=== PATIENT | female | born 1995 | race Hispanic/Latino ===

== ENCOUNTER 2025-06-02 07:16 | Inpatient (IN) | payer BC ==
[~2025-06-02] VITALS: Ht 170.2 cm; Wt 62.6 kg
[2025-06-02] VITALS (18 sets, daily range): BP systolic 92–113; BP diastolic 51–76; PULSE 63–91; RESP 15–20; TEMP 97.8–98.7; O2SAT 98–99
[2025-06-02 08:02] LABS: IMMATURE GRANULOCYTE ABSOLUTE 0.20 K/uL (0-1); NUCLEATED RED BLOOD CELLS 0.0 % (0.0-0.19); PLATELET COUNT (AUTO) 385 K/uL (130-400); RED BLOOD CELL COUNT(AUTO) 3.87 MIL/uL (4.00-5.50); RED CELL DISTRIBUTION WIDTH 12.6 % (11.0-15.5); WHITE BLOOD COUNT (AUTO) 25.9 K/uL (4.8-10.8)
[2025-06-02 08:20] LABS: ASPARTATE AMINOTRANSFERASE 11.0 U/L (10-37); CREATININE 0.7 mg/dL (0.5-1.0); GLOMERULAR FILTR. RATE CALC 121.0 mL/min (>90); GLUCOSE,RANDOM 94.0 mg/dL (70-105); SODIUM SERUM 139.0 mmol/L (136-145); TOTAL PROTEIN, SERUM 7.6 g/dL (6.0-8.3); UREA NITROGEN, BLOOD 11.0 mg/dL (7-18)
--- NOTE | 2025-06-02 08:48 | ERN ---
General Chief Complaint: Abscess Stated Complaint: ABSCESS Time Seen by MD: 07:24 History of Present Illness Initial Comments 30-year-old female history of diabetes who presents to emergency room with complaints of right perineal abscess. Patient states that she was initially seen by her primary care doctor 4-5 days ago. At that time they prescribed Ciprodex. However because the pain was getting worse and there was some minimal drainage they switched her medications over to doxycycline and got lab work. In the interim she was also follow up by them and received two total injections of Rocephin. Since then the blood work came back elevated to the point where her PCP called the patient at 3:00 a.m. in the morning advised the patient to go to the emergency room for evaluation. Patient states that she has never had symptoms like this before. It is progressively worsening and enlarging to the point where she is unable to sit or feel comfortable. No fever. No nausea vomiting diarrhea. No pain with urination. Allergies: Coded Allergies: No Known Drug Allergies (Unverified Allergy, Unknown, 06/02/25) Past Medical History Past Medical History: Other Medical History Other: ovarian cyst Past Surgical History: Other Surgical History Other: ovarian cyst Review of Systems: was completed, & the rest were negative. Physical Exam General Appearance: (+) no apparent distress Orientation: (+) alert, (+) oriented x 3 Ear, Nose, Throat: (+) hearing grossly normal, (+) normal ENT inspection, (+) moist mucous membraine Neck: (+) normal inspection Heart: (+) regular, (+) no gallop Gastrointestinal: (+) soft, (+) non-tender Genital Comment Female nurse accompanied for this part of the exam. There is a four by six area on the left posterior inguinal region just lateral to the vagina that is exquisitely tender, tense, warm and red. It appears to be deep. Back: (+) normal inspection, (+) no CVA tenderness Extremities: (+) normal range of motion Neurologic/Psychiatric: (+) normal speech, (+) no motor defecits, (+) no sensory deficits Results Laboratory and Microbiology Lab and Micro Result Laboratory Tests Test 06/02/25 07:53 White Blood Count 25.9 K/uL (4.8-10.8) H Red Blood Count 3.87 MIL/uL (4.00-5.50) L Hemoglobin 11.2 g/dL (12.0-16.0) L Hematocrit 34.0 % (36-48) L Mean Corpuscular Volume 87.9 fL (79-99) Mean Corpuscular Hemoglobin 28.9 pg (27.0-33.0) Mean Corpuscular Hemoglobin Concent 32.9 g/dL (32.0-36.0) Red Cell Distribution Width 12.6 % (11.0-15.5) Platelet Count 385 K/uL (130-400) Mean Platelet Volume 9.5 fL (7.5-10.5) Immature Granulocyte % (Auto) 0.8 % (0-1) Neutrophils (%) (Auto) 79.3 % (40.0-77.0) H Lymphocytes (%) (Auto) 11.2 % (21.0-51.0) L Monocytes (%) (Auto) 7.9 % (3.0-13.0) Eosinophils (%) (Auto) 0.5 % (0.0-8.0) Basophils (%) (Auto) 0.3 % (0.0-5.0) Neutrophils # (Auto) 20.5 K/uL (1.8-7.7) H Lymphocytes # (Auto) 2.9 K/uL (1.0-4.8) Monocytes # (Auto) 2.1 K/uL (0.1-1.0) H Eosinophils # (Auto) 0.13 K/uL (0.00-0.70) Basophils # (Auto) 0.08 K/uL (0.00-0.20) Absolute Immature Granulocyte (auto 0.20 K/uL (0-1) Nucleated Red Blood Cells 0.0 % (0.0-0.19) Sodium Level 139 mmol/L (136-145) Potassium Level 3.9 mmol/L (3.5-5.1) Chloride Level 102 mmol/L (101-111) Carbon Dioxide Level 28 mmol/L (21-32) Blood Urea Nitrogen 11 mg/dL (7-18) Creatinine 0.7 mg/dL (0.5-1.0) Glomerular Filtration Rate Calc 121 mL/min (>90) Random Glucose 94 mg/dL (70-105) Total Calcium 9.1 mg/dL (8.5-10.1) Total Bilirubin 0.4 mg/dL (0.2-1.0) Direct Bilirubin 0.1 mg/dL (0.0-0.3) Aspartate Amino Transf (AST/SGOT) 11 U/L (10-37) Alanine Aminotransferase (ALT/SGPT) 21 U/L (12-78) Alkaline Phosphatase 73 U/L (50-136) Total Protein 7.6 g/dL (6.0-8.3) Albumin 3.2 g/dL (3.5-5.0) L Serum Test, Qualitative NEGATIVE (NEGATIVE) EKG/XRAY/US/CT/MRI CT Scan Comment There appears to be a suggestion of a nabothian cyst in the cervix. I would recommend a pelvic and transvaginal sonogram for further evaluation. MDM 30-year-old female here for evaluation of left inguinal abscess. It appears to be deep. We will get basic blood work at this time and CT scan to rule out any fistulization. She will likely be admitted for surgical drainage as this is very close to the vagina and local anesthesia we will not be sufficient to with evacuate the potential abscess. ED Course Orders Procedure Category Date Status Time Cbc With Differential LAB 06/02/25 Complete 07:35 Basic Metabolic Panel LAB 06/02/25 Complete 07:35 Hepatic Function Panel LAB 06/02/25 Complete 07:35 Testing, LAB 06/02/25 Complete Serum Hcg 07:35 Ct Abdomen/Pelvis CT 06/02/25 Resulted W/Contrast 08:17 Iohexol (Omnipaque) PHA 06/02/25 Complete 08:57 Acetaminophen 325 Tab PHA 06/02/25 Complete (Tylenol 325mg Tab 09:30 Vancomycin 1g/250ml PHA 06/02/25 Complete Kit (Vancomycin 1g/2 10:00 Us Pelvic Non-Ob Comp US 06/02/25 Resulted 10:16 Current Medications Medications (Trade) Dose Ordered Sig/Kenzie Route PRN Reason Start Time Stop Time Status Last Admin Dose Admin Acetaminophen (TYLenol 325MG TAB) 650 mg ONCE ONCE PO 06/02/25 09:30 06/02/25 09:31 DC Iohexol (Omnipaque) 75 ml STK-MED ONCE IV 06/02/25 08:57 06/02/25 08:57 DC Vancomycin HCl (Vancomycin 1g/ 250ml Kit) 1 gm ONCE ONCE IV 06/02/25 10:00 10/4/25 10:01 DC Vital Signs Date Time Temp Pulse Resp B/P (MAP) Pulse Ox O2 Delivery O2 Flow Rate FiO2 06/02/25 10:30 71 20 123/71 99 Room Air* 0 21 06/02/25 09:11 100.2 89 20 110/74 99 Room Air* 0 21 06/02/25 07:27 98.1 102 16 117/78 98 Room Air* 0 21 06/02/25 07:22 98.1 102 16 117/78 98 Room Air 0 Patient re-evaluated at this time. Ultrasound shows a perirectal abscess. This was confirmed by Radiology. I spoke to Dr. Linton of General surgery who will accept the patient. COMPARISON: CT examination from the same day. CLINICAL HISTORY: nabothian cyst in the cervix, lt perineum pain TECHNIQUE: Transabdominal pelvic ultrasound (complete) with image documentation. FINDINGS: ENDOMETRIUM: Normal thickness. UTERUS/CERVIX: The uterus appears within normal limits. Overall dimensions are 7.8 x 4.0 x 3.3 cm. No uterine fibroid or other mass evident. RIGHT OVARY: Normal Doppler flow. No abnormal mass. LEFT OVARY: Normal Doppler flow. No abnormal mass. FREE FLUID: No free fluid. There is a 4.4 x 3.0 x 4.0 cm abscess within the left perineum that is presumed to reflect a perirectal abscess seen on the correlative CT examination. Clinical correlation is advised. IMPRESSION: 1. 4.4 x 3.0 x 4.0 cm abscess in the left perineum, likely representing a perirectal abscess. Clinical correlation is advised. 2. Otherwise normal pelvic ultrasound. /Eastern EXAM: US Pelvis, Complete transabdominal DX & DISP Disposition: Inpatient Departure Impression: Primary Impression: Perineal abscess Condition: Stable Referrals: SELF,REFERRAL (PCP) ALAN TINSLEY MD Jun 02, 2025 08:48
[2025-06-02] MEDS ORDERED: IOHEXOL-350 75 ML VIAL IV ONE (08:57)
[2025-06-02] MEDS: VANCOMYCIN KIT 1 GM/250 ML IV.KIT IV ONE (10:00)
--- NOTE | 2025-06-02 10:06 | HMCIMG ---
CT ABDOMEN/PELVIS W/CONTRAST HISTORY: perivaginal abscess, large, r/o fistula. COMPARISON: None. TECHNIQUE: Sequential axial images through abdomen and pelvis were performed. Patient was given 75 mL of Omnipaque 350 IV. Coronal and sagittal reformats were obtained. FINDINGS: Lung bases: Left lung is a pleural-based density measuring 1.2 cm. The heart and pericardium appears to be normal. Liver: Normal size and enhancement throughout. Portal vein: Patent. Gallbladder: Unremarkable. Spleen: Normal. Kidneys: Normal size and shape. Adrenal glands: Normal Pancreas: Unremarkable. Stomach and small bowel: No inflammation or distention noted. Colon: Unremarkable. Appendix: Normal. Bladder: Partially distended and unremarkable. Reproductive system: The uterus appears to be prominent than deviating towards the left side. In the cervix there is suggestion of a nabothian cyst.. Abdominal aorta: Normal caliber. Skeletal: No acute abnormality. IMPRESSION: No acute process noted. Left lower lung pleural-based density posteriorly measuring approximately 1.2 cm. I would recommend a complete CT of the chest for further workup There appears to be a suggestion of a nabothian cyst in the cervix. I would recommend a pelvic and transvaginal sonogram for further evaluation.
--- NOTE | 2025-06-02 10:25 | NUR ---
PTS HOG GRADER IS DR HAILE HAYES OF [place]
--- NOTE | 2025-06-02 11:02 | HMCIMG ---
EXAM: US Pelvis, Complete transabdominal COMPARISON: None provided. CLINICAL HISTORY: nabothian cyst in the cervix, lt perineum pain TECHNIQUE: Transabdominal pelvic ultrasound (complete) with image documentation. FINDINGS: ENDOMETRIUM: Normal thickness. UTERUS/CERVIX: The uterus appears within normal limits. Overall dimensions are 7.8 x 4.0 x 3.3 cm. No uterine fibroid or other mass evident. RIGHT OVARY: Normal Doppler flow. No abnormal mass. LEFT OVARY: Normal Doppler flow. No abnormal mass. FREE FLUID: No free fluid. There is a 4.4 x 3.0 x 4.0 cm abscess within the left perineum that is presumed to reflect a perirectal abscess seen on the correlative CT examination. Clinical correlation is advised. IMPRESSION: 1. 4.4 x 3.0 x 4.0 cm abscess in the left perineum, likely representing a perirectal abscess. Clinical correlation is advised. 2. Otherwise normal pelvic ultrasound. /[place]
--- NOTE | 2025-06-02 11:55 | NUR ---
DR. GASTON WAS AT BEDSIDE, SPOKE TO PT AND NURSING STAFF. STATES PT WILL BE SENT TO OR FOR I&D OF PERIANAL ASBCESS. housing management representative WAS INFORMED
[2025-06-02] MEDS ORDERED: DEXTROSE 50%-WATER 50 ML DISP.SYRIN IV PRN ×2 (12:00→21:30)
[2025-06-02] MEDS ORDERED: MAGNESIUM 2GM PREMIX 50ML 50 ML IV PRN ×2 (12:00→21:30)
[2025-06-02] MEDS ORDERED: GLUCAGON 1MG KIT 1 MG ML IM PRN ×2 (12:00→21:30)
[2025-06-02] MEDS ORDERED: PoTASSium chl 10% ELIXIR 20MEQ 20 MEQ/15 ML UDCUP PO PRN ×2 (12:00→21:30)
[2025-06-02] MEDS ORDERED: PoTASSium chloRIDE 20MEQ ER 20 MEQ ERTAB PO PRN (12:00)
[2025-06-02] MEDS ORDERED: guaiFENesin-DM 200/20MG 10ML PO PRN ×2 (12:00→21:30)
[2025-06-02] MEDS ORDERED: HYDROcodone/APAP 5/325 1 TAB TABLET PO PRN (12:00)
[2025-06-02] MEDS: VANCOMYCIN 2GM/500 ML BAG 500 ML IV ONE (12:00)
[2025-06-02] MEDS ORDERED: LACTULOSE 20 GM/30 ML UDCUP PO PRN ×2 (12:00→21:30)
[2025-06-02] MEDS: 0.9%NACL 1000ML 1,000 ML IV SCH (12:00)
[2025-06-02] MEDS ORDERED: MAG/ALUM/SIMETH 30 ML UDCUP PO PRN ×2 (12:00→21:30)
[2025-06-02] MEDS ORDERED: FAMOTIDINE 20MG VIAL IV PRN (12:00)
[2025-06-02] MEDS ORDERED: NITROGLYCERIN 0.4 MG SL TAB SL PRN ×2 (12:00→21:30)
[2025-06-02] MEDS ORDERED: VANCOMYCIN PROTOCOL PER PHARMACY IV PRN (12:00)
--- NOTE | 2025-06-02 12:00 | NUR ---
OR STAFF AT BEDSIDE, ORDER WAS ENTERED INTO SYSTEM SO THAT PT MAY BE TAKEN TO OR. US STAFF AT BEDSIDE, [facility] STATES HE HAS FOUND THAT PT PRESENTS WITH BARTHOLIN CYST ABSCESS AND HAS CALLED THE RADIOLOGIST TEAM TO MAKE AN ADDENDUM.
--- NOTE | 2025-06-02 12:05 | NUR ---
HOUSE [employer] IS AWARE, OR TEAM IS AWARE, THEY WILL BE CONTACTING DR. GASTON TO SEE IF PT WILL BE GOING TO OR PLANNED OR IF THIS IS SOMETHING THAT HAS TO BE ATTENDED TO BE OB
[2025-06-02 12:44] LABS: APPEARANCE,URINE CLOUDY (CLEAR); GLUCOSE, URINE (UA) NEGATIVE (NEGATIVE); LEUKOCYTE ESTERASE ,URINE NEGATIVE Leu/uL (NEGATIVE); NITRATE,URINE NEGATIVE (NEGATIVE); OCCULT BLOOD,URINE LARGE (NEGATIVE)
--- NOTE | 2025-06-02 12:45 | NUR ---
PT WENT TO OR AT THIS TIME.
[2025-06-02 12:48] LABS: SQUAMOUS EPITHELIAL CELL,UR FEW /HPF (0-2)
[2025-06-02 12:52] LABS: AMPHET/METH SCREEN,URINE NEGATIVE (NEGATIVE); BARBITURATE SCREEN, URINE NEGATIVE (NEGATIVE); CANNABINOID SCREEN,URINE NEGATIVE (NEGATIVE); COCAINE SCREEN,URINE NEGATIVE (NEGATIVE)
--- NOTE | 2025-06-02 13:05 | NUR ---
CT CHEST EXAM PENDING UNTIL FURTHER NOTICE: PATIENT TAKEN TO OR
[2025-06-02] MEDS ORDERED: MIDAZOLAM HCL 1 MG/ML 2ML VIAL ONE (13:16)
[2025-06-02] MEDS ORDERED: LIDOCAINE PF 100MG/5ML (2%) SYRINGE 5ML ONE (13:16)
[2025-06-02] MEDS ORDERED: GLYCOPYRROLATE 0.2 MG/ML 5 ML VIAL ONE (14:08)
--- NOTE | 2025-06-02 14:12 | NUR ---
REPORT GIVEN TO SHILO AT THIS TIME
--- NOTE | 2025-06-02 14:12 | HP ---
[facility] HISTORY AND PHYSICAL Date of Service: Jun 02, 2025 Time of Service: 13:58 PCP: Dr Luis Larson Admitting: Dr Calvert, Allergies: No Allergy Information Available, No Known Drug Allergies HISTORY OF PRESENT ILLNESS: [ 30-year-old female history of diabetes who presents to emergency room with complaints of right perineal abscess. Patient states that she was initially seen by her primary care doctor 4-5 days ago. At that time they prescribed Ciprodex. However because the pain was getting worse and there was some minimal drainage they switched her medications over to doxycycline and got lab work. In the interim she was also follow up by them and received two total injections of Rocephin. Since then the blood work came back elevated to the point where her PCP called the patient at 3:00 a.m. in the morning advised the patient to go to the emergency room for evaluation. Patient states that she has never had symptoms like this before. It is progressively worsening and enlarging to the point where she is unable to sit or feel comfortable. Most recent vital signs 100.2 temperature pulse 71 respiration 20 blood pressure 123/71 patient is on room air satting 99%. WBC 25.9 hemoglobin 11.2 hematocrit 34 platelets 385 sodium 139 potassium 3.9 CO2 28 BUN 11 creatinine 0.7 GFR 121 bilirubin 0.1 AST 11 ALT 21 UA negative. Toxicology negative. CT abdomen/pelvis showed no acute process noted. Left lower lung pleural-based density posteriorly measuring approximately 1.[address] of the chest. There is also suggestion of nabothian cyst in the cervix ultrasound recommended. Pelvic ultrasound transvaginal showed 4.4 x3 x 4 cm abscess in left peroneal likely representing a perirectal abscess. Pelvic ultrasound normal. CT chest pending. Patient admitted under hospitalist care for further evaluation/recommendations. A.m. labs REVIEW OF SYSTEMS CONSTITUTIONAL: Denies fevers, chills, or night sweats. No unintentional weight loss reported. NEUROLOGICAL: Denies headache, amaurosis fugax, motor weakness, sensory deficit, vertigo/spinning sensation, gait abnormalities, or tremors. ENT: No hearing loss, otalgia, otorrhea, rhinitis, rhinorrhea, hoarseness, or sore throat. CARDIOVASCULAR: Denies any exertional angina, dyspnea on exertion, orthopnea, paroxysmal nocturnal dyspnea, palpitations, life-threatening arrhythmias, claudication. PULMONARY: Denies any shortness of breath, cough, phlegm/sputum, hemoptysis, pleuritic chest pain. SLEEP: Denies morning headaches, daytime somnolence or napping. Denies difficulty falling asleep, staying asleep, waking from sleep. Denies knowledge of snoring. GASTROINTESTINAL: Denies any type of dysphagia to either liquids or solids. Denies nausea, vomiting, pyrosis, early satiety, abdominal pain, diarrhea, constipation, or changes in stool consistency or caliber. Denies coffee-ground emesis, hematemesis, hematochezia, or melanotic stools. GENITOURINARY: Denies frequency, urgency, nocturia, hematuria or incontinence (Storage/Irritative symptoms.) Low urinary stream, straining to void, urinary intermittency or hesitancy, splitting of the voiding stream, terminal dribbling. Perirectal abscess pain ENDOCRINOLOGIC: Denies polyuria, polydipsia, polyphagia or heat/cold intolerances. HEMATOLOGIC: Denies thrombophilia/previous clots, or coagulopathy/bleeding disorders. ONCOLOGIC: Denies personal history of malignancy. DERMATOLOGIC: Denies rashes or pruritus. PSYCHIATRIC: Denies any suicidal or homicidal ideation. Denies hallucinations. PAST MEDICAL HISTORY: [ none] PAST SURGICAL HISTORY: [ Laparoscopic ovarian cyst removal 2022 ] PAST SOCIAL HISTORY: [ denies any] FAMILY HISTORY: [ lives with family, independent] Coded Allergies: No Known Drug Allergies (Unverified Allergy, Unknown, 06/02/25) PHYSICAL EXAM GENERAL APPEARANCE: The patient is awake, alert, and oriented, in no acute cardiopulmonary distress. NEUROLOGICAL: Cranial nerves II-XII grossly intact. Motor is 5/5 in bilateral upper and lower extremities proximal to distal. No sensory deficits. HEENT: Face is symmetric. Pupils are equal and reactive. Extraocular movements are intact. NECK: Supple. No JVD. No thyromegaly. No submental, submandibular, pre- /postauricular, occipital or supraclavicular lymphadenopathy. CHEST: Normal chest expansion. No Telemetry. LUNGS: Absence of any rales, rhonchi or any wheezing. CARDIOVASCULAR: Regular. S1 and S2 normal. No appreciable rubs, murmurs or gallops. ABDOMEN: Soft, nontender, and nondistended. There is no rebound, voluntary guarding, or rigidity. : Deferred. No Negron. EXTREMITIES: Non-edematous and not cyanotic. No clubbing. Good capillary refill. SKIN: No skin breakdown. Vital Sign (Last 24 Hours) 06/02/25 06/02/25 09:11 10:30 Temp 100.2 Pulse 71 Resp 20 B/P (MAP) 123/71 Pulse Ox 99 O2 Delivery Room Air* O2 Flow Rate 0 FiO2 21 LABS: Laboratory: Test 06/02/25 08:15 06/02/25 07:53 Range/Units Urine Color YELLOW YELLOW Urine Appearance CLOUDY H CLEAR Urine pH 5.5 5.0-8.0 Urine Specific [place] 1.031 1.001-1.031 Urine Protein 20 H NEGATIVE mg/dL Urine Glucose (UA) NEGATIVE NEGATIVE mg/dL Urine Ketones NEGATIVE NEGATIVE mg/dL Urine Occult Blood LARGE H NEGATIVE Urine Nitrate NEGATIVE NEGATIVE Urine Bilirubin NEGATIVE NEGATIVE mg/dL Urine Urobilinogen 0.2 0.2-1.0 mg/dL Urine Leukocyte Esterase NEGATIVE NEGATIVE Mila/uL Urine RBC TNTC H 0-1 /HPF Urine WBC 26-50 H 0-1 /HPF Urine Squamous Epithelial Cells FEW 0-2 /HPF Urine Bacteria RARE None Seen /HPF Urine Opiates Screen NEGATIVE NEGATIVE Urine Barbiturates Screen NEGATIVE NEGATIVE Urine Phencyclidine Screen NEGATIVE NEGATIVE Urine Amphetamines Screen NEGATIVE NEGATIVE Urine Benzodiazepines Screen NEGATIVE NEGATIVE Urine Cocaine Screen NEGATIVE NEGATIVE Urine Marijuana (THC) Screen NEGATIVE NEGATIVE White Blood Count 25.9 H 4.8-10.8 K/uL Red Blood Count 3.87 L 4.00-5.50 MIL/uL Hemoglobin 11.2 L 12.0-16.0 g/dL Hematocrit 34.0 L 36-48 % Mean Corpuscular Volume 87.9 79-99 fL Mean Corpuscular Hemoglobin 28.9 27.0-33.0 pg Mean Corpuscular Hemoglobin Concent 32.9 32.0-36.0 g/dL Red Cell Distribution Width 12.6 11.0-15.5 % Platelet Count 385 130-400 K/uL Mean Platelet Volume 9.5 7.5-10.5 fL Immature Granulocyte % (Auto) 0.8 0-1 % Neutrophils (%) (Auto) 79.3 H 40.0-77.0 % Lymphocytes (%) (Auto) 11.2 L 21.0-51.0 % Monocytes (%) (Auto) 7.9 3.0-13.0 % Eosinophils (%) (Auto) 0.5 0.0-8.0 % Basophils (%) (Auto) 0.3 0.0-5.0 % Neutrophils # (Auto) 20.5 H 1.8-7.7 K/uL Lymphocytes # (Auto) 2.9 1.0-4.8 K/uL Monocytes # (Auto) 2.1 H 0.1-1.0 K/uL Eosinophils # (Auto) 0.13 0.00-0.70 K/uL Basophils # (Auto) 0.08 0.00-0.20 K/uL Absolute Immature Granulocyte (auto 0.20 0-1 K/uL Nucleated Red Blood Cells 0.0 0.0-0.19 % Sodium Level 139 136-145 mmol/L Potassium Level 3.9 3.5-5.1 mmol/L Chloride Level 102 101-111 mmol/L Carbon Dioxide Level 28 21-32 mmol/L Blood Urea Nitrogen 11 7-18 mg/dL Creatinine 0.7 0.5-1.0 mg/dL Glomerular Filtration Rate Calc 121 >90 mL/min Random Glucose 94 70-105 mg/dL Total Calcium 9.1 8.5-10.1 mg/dL Total Bilirubin 0.4 0.2-1.0 mg/dL Direct Bilirubin 0.1 0.0-0.3 mg/dL Aspartate Amino Transf (AST/SGOT) 11 10-37 U/L Alanine Aminotransferase (ALT/SGPT) 21 12-78 U/L Alkaline Phosphatase 73 50-136 U/L Total Protein 7.6 6.0-8.3 g/dL Albumin 3.2 L 3.5-5.0 g/dL Serum Test, Qualitative NEGATIVE NEGATIVE Current Medications Medications (Trade) Dose Ordered Sig/Kenzie Route PRN Reason Start Time Stop Time Status Last Admin Dose Admin Acetaminophen (TYLenol 325MG TAB) 650 mg Q4H PRN PO MILD PAIN (1-3) 06/02/25 12:00 07/02/25 11:59 Acetaminophen (TYLenol 325MG TAB) 650 mg Q6H PRN PO MILD PAIN (1-3) 06/02/25 12:00 06/02/25 11:44 DC Acetaminophen (TYLenol 325MG TAB) 650 mg Q6H PRN PO TEMPERATURE GREATER THAN 101.5 06/02/25 12:00 07/02/25 11:59 Acetaminophen/ Hydrocodone Bitart (NORco 5/325MG) 1 tab Q6H PRN PO SEVERE PAIN (7-10) 06/02/25 12:00 06/07/25 11:59 Al Hydroxide/Mg Hydroxide (MAALox PLUS 30ML) 30 ml Q6H PRN PO INDIGESTION 06/02/25 12:00 07/02/25 11:59 Dextrose (D50w) 50 ml AD PRN IV HYPOGLYCEMIA PROTOCOL 06/02/25 12:00 07/02/25 11:59 Diphenhydramine HCl (BENAdryl INJ) 25 mg Q6H PRN IV SEVERE ITCHING/RASH 06/02/25 12:00 07/02/25 11:59 Famotidine (Pepcid 20mg Vial) 20 mg BID IV 06/02/25 21:00 07/02/25 20:59 Famotidine (Pepcid 20mg Vial) 20 mg BID PRN IV NAUSEA/VOMITING 06/02/25 12:00 06/02/25 11:44 DC Glucagon (Glucagon 1mg Kit) 1 mg AD PRN IM HYPOGLYCEMIA PROTOCOL 06/02/25 12:00 07/02/25 11:59 Guaifenesin/ Dextromethorphan (RobiTUSSin DM 200/20MG 10ML) 10 ml Q4H PRN PO COUGH 06/02/25 12:00 07/02/25 11:59 Hydralazine HCl (APRESOLine 20MG INJ) 10 mg Q6H PRN IV For:SBP above 160;DBP above 90 06/02/25 12:00 07/02/25 11:59 Insulin Human Regular (humuLIN R 100 UNIT/ML 3ML) INSULIN SLIDING SCAL... ACHS SQ 06/02/25 16:30 07/02/25 16:29 Ketorolac Tromethamine (toRADol) 15 mg Q8H PRN IV MODERATE PAIN (4-6) 06/02/25 12:00 06/07/25 11:59 Lactulose (Constulose 20gm/ 30ml Udcup) 20 gm BID PRN PO CONSTIPATION 06/02/25 12:00 07/02/25 11:59 Magnesium Sulfate 50 ml @ 0 mls/hr PROTOCOL PRN IV other 06/02/25 12:00 07/02/25 11:59 Morphine Sulfate (morPHINE 2MG SYG) 1 mg Q4H PRN IVP SEVERE PAIN (7-10) 06/02/25 12:00 06/02/25 11:44 DC Nitroglycerin (Nitrostat) 0.4 mg PROTOCOL PRN SL CHEST PAIN 06/02/25 12:00 07/02/25 11:59 Ondansetron HCl (zoFRAN 4MG INJ) 4 mg Q6H PRN IV NAUSEA/VOMITING 06/02/25 12:00 07/02/25 11:59 Potassium Chloride 100 ml @ 100 mls/hr AD PRN IV POTASSIUM PROTOCOL 06/02/25 12:00 07/02/25 11:59 Potassium Chloride (K-Dur/Klor-Con 20meq) 20 meq AD PRN PO POTASSIUM PROTOCOL 06/02/25 12:00 07/02/25 11:59 Potassium Chloride (KCl 10% Elixir 20meq/15ml) 20 meq AD PRN PO POTASSIUM PROTOCOL 06/02/25 12:00 07/02/25 11:59 Sodium Chloride 1,000 ml @ 100 mls/hr Q10H IV 06/02/25 12:00 07/02/25 11:59 Vancomycin HCl 250 ml @ 125 mls/hr Q8H IV 06/02/25 22:00 06/12/25 21:59 Vancomycin HCl (Vancomycin Protocol) 1 each PROTOCOL PRN IV VANCOMYCIN PROTOCOL 06/02/25 12:00 06/16/25 11:59 Zolpidem Tartrate (AmbIEN) 5 mg HS PRN PO INSOMNIA 06/02/25 12:00 07/02/25 11:59 DIAGNOSTICS / RADIOLOGY: [ ] ASSESSMENT: [ sepsis POA Rectal abscess POA nabothian cyst in cervix per CT abdomen/pelvis POA Leukocytosis POA Multifactorial anemia POA] PLAN: [ Patient admitted to medical-surgical floor under hospitalist care Surgeon consulted for perirectal abscess Wound culture pending Vancomycin protocol Normal saline at 100 mL/hour CT abdomen/pelvis showed pleural density nabothian cyst in cervix Pelvic ultrasound showed abscess left peroneal CT chest pending Ultrasound transvaginal pending A.m. labs Potassium magnesium protocol Hypo hyper glycemia protocol ] ADVANCED CARE PLANNING 1. Which of the following were discussed? Hospice Care - Yes / No Therapeutic options - Yes / No Advance Directives - Yes / No Other discussions - 2. Discussed with who? Patient 3. Voluntary nature of this service was explained to the patient? Yes / No 4. Amount of time spent - ___more than 35 min____ 5. Reviewed by Physician? (if this service was performed by NPP) Yes / No ATTESTATION BY PHYSICIAN I have seen and examined the patient. I reviewed the documentation, medical decision making, and treatment plan as noted by the mid-level provider above. I agree with the findings and plan of care. CECILIA CALVERT MD, [facility] [employer] Jun 02, 2025 14:12
--- NOTE | 2025-06-02 15:06 | CONS ---
GENERAL SURGERY CONSULTATION NOTE Date/Time Patient Seen: 06/02/2025 11:30 a.m. Requesting Physician: ED physician Reason for Consultation: Perianal abscess History of Present Illness: This is a 30-year-old female that presents with perianal pain for the last 10 days. She reports that she initially had lower pain that she was being treated for UTI. She had been given several and it kind of antibiotics. Nothing was helping. She noticed a ball that developed in under the skin between the vagina and anal canal. A couple of days ago she noticed a large amount of purulent drainage from her rectum. That stopped and the swelling continued. So the patient came to the ED. patient is afebrile and hemodynamically stable. She has a leukocytosis. CT scan of the abdomen and pelvis showed a large fluid collection near the rectum which was called a possible nabothian cyst. She also had a transvaginal ultrasound performed which was called as a possible Bartholin gland cyst or abscess. Surgery was consulted for possible perianal abscess. Past Medical History: None Past Surgical History: None Family History: None Social History: Nonsmoker nondrinker Current Medications Medications (Trade) Dose Ordered Sig/Kenzie Route Start Time Stop Time Status Last Admin Dose Admin Famotidine (Pepcid 20mg Vial) 20 mg BID IV 06/02/25 21:00 07/02/25 20:59 Insulin Human Regular (humuLIN R 100 UNIT/ML 3ML) INSULIN SLIDING SCAL... ACHS SQ 06/02/25 16:30 07/02/25 16:29 Sodium Chloride 1,000 ml @ 100 mls/hr Q10H IV 06/02/25 12:00 07/02/25 11:59 Vancomycin HCl 250 ml @ 125 mls/hr Q8H IV 06/02/25 22:00 06/12/25 21:59 Review of Systems: CONST: No fever, fatigue, or weight changes. EYES: No recent vision problems. ENT: No congestion, ear pain, or sore throat. C/V: No chest pain, palpitations, or edema. RESP: No cough, congestion, wheezing or shortness of breath. GI: No abdominal pain, nausea, vomiting, constipation, or diarrhea. : No incontinence or dysuria. SKIN: No rash. NEURO: No headache, focal numbness or weakness, dizziness, or seizures. PSYCH: No depression or anxiety. HEME: No abnormal bruising or bleeding. LYMPH: No swollen glands. Physical Examination: GENERAL: No acute distress. HEAD: Normal with no signs of head trauma. LUNGS: Respirations nonlabored HEART: Regular rate and rhythm ABD: Soft, nondistended, nontender, no rebound, no guarding : Large area of induration in the left perineum there is also erythema and fluctuance LYMPH: No lymphadenopathy noted. EXT: No clubbing, cyanosis or edema. SKIN: No rashes or lesions noted. NEURO: Awake, alert, and oriented x3. No focal sensory or strength deficits noted. Vital Signs (last 8hr) Date Time Temp Pulse Resp B/P (MAP) Pulse Ox O2 Delivery O2 Flow Rate FiO2 06/02/25 14:56 80 18 102/61 99 Nasal Cannula 2.0 06/02/25 14:51 85 17 98/58 99 Nasal Cannula 2.0 24 06/02/25 14:46 87 16 103/62 99 Nasal Cannula 2.0 06/02/25 14:41 83 17 108/60 100 Nasal Cannula 2.0 24 06/02/25 14:36 88 19 105/55 100 Nonrebreathing Mask 10.0 100 06/02/25 14:31 84 16 100/58 100 Nonrebreathing Mask 10.0 100 06/02/25 14:26 90 17 96/55 100 Nonrebreathing Mask 10.0 100 06/02/25 14:21 91 15 92/51 100 Nonrebreathing Mask 10.0 100 06/02/25 14:16 98.2 89 15 95/52 100 Nonrebreathing Mask 10.0 100 06/02/25 10:30 71 20 123/71 99 Room Air* 0 06/02/25 09:11 100.2 89 20 110/74 99 Room Air* 0 06/02/25 07:27 98.1 102 16 117/78 98 Room Air* 0 06/02/25 07:22 98.1 102 16 117/78 98 Room Air 0 Laboratory: Hematology Labs: Test 06/02/25 07:53 Range/Units White Blood Count 25.9 H 4.8-10.8 K/uL Red Blood Count 3.87 L 4.00-5.50 MIL/uL Hemoglobin 11.2 L 12.0-16.0 g/dL Hematocrit 34.0 L 36-48 % Mean Corpuscular Volume 87.9 79-99 fL Mean Corpuscular Hemoglobin 28.9 27.0-33.0 pg Mean Corpuscular Hemoglobin Concent 32.9 32.0-36.0 g/dL Red Cell Distribution Width 12.6 11.0-15.5 % Platelet Count 385 130-400 K/uL Mean Platelet Volume 9.5 7.5-10.5 fL Immature Granulocyte % (Auto) 0.8 0-1 % Neutrophils (%) (Auto) 79.3 H 40.0-77.0 % Lymphocytes (%) (Auto) 11.2 L 21.0-51.0 % Monocytes (%) (Auto) 7.9 3.0-13.0 % Eosinophils (%) (Auto) 0.5 0.0-8.0 % Basophils (%) (Auto) 0.3 0.0-5.0 % Neutrophils # (Auto) 20.5 H 1.8-7.7 K/uL Lymphocytes # (Auto) 2.9 1.0-4.8 K/uL Monocytes # (Auto) 2.1 H 0.1-1.0 K/uL Eosinophils # (Auto) 0.13 0.00-0.70 K/uL Basophils # (Auto) 0.08 0.00-0.20 K/uL Absolute Immature Granulocyte (auto 0.20 0-1 K/uL Nucleated Red Blood Cells 0.0 0.0-0.19 % Chemistry Labs: Test 06/02/25 07:53 Range/Units Sodium Level 139 136-145 mmol/L Potassium Level 3.9 3.5-5.1 mmol/L Chloride Level 102 101-111 mmol/L Carbon Dioxide Level 28 21-32 mmol/L Blood Urea Nitrogen 11 7-18 mg/dL Creatinine 0.7 0.5-1.0 mg/dL Glomerular Filtration Rate Calc 121 >90 mL/min Random Glucose 94 70-105 mg/dL Total Calcium 9.1 8.5-10.1 mg/dL Total Bilirubin 0.4 0.2-1.0 mg/dL Direct Bilirubin 0.1 0.0-0.3 mg/dL Aspartate Amino Transf (AST/SGOT) 11 10-37 U/L Alanine Aminotransferase (ALT/SGPT) 21 12-78 U/L Alkaline Phosphatase 73 50-136 U/L Total Protein 7.6 6.0-8.3 g/dL Albumin 3.2 L 3.5-5.0 g/dL Serum Test, Qualitative NEGATIVE NEGATIVE Diagnostics / Radiology: PATIENT: MICHEAL BENOIT MR#: [id number] : 1995 SEX: F AGE: 30 LOCATION: [facility] ORDER 7 STATUS: [facility] REPORT#: [id number] SERVICE 6 REASON: perivaginal abscess, large, r/o fistula ORDERING PHYSICIAN: ALAN TINSLEY MD PROCEDURE: ABD PEL W - CT ABDOMEN/PELVIS W/CONTRAST CT ABDOMEN/PELVIS W/CONTRAST HISTORY: perivaginal abscess, large, r/o fistula. COMPARISON: None. TECHNIQUE: Sequential axial images through abdomen and pelvis were performed. Patient was given 75 mL of Omnipaque 350 IV. Coronal and sagittal reformats were obtained. FINDINGS: Lung bases: Left lung is a pleural-based density measuring 1.2 cm. The heart and pericardium appears to be normal. Liver: Normal size and enhancement throughout. Portal vein: Patent. Gallbladder: Unremarkable. Spleen: Normal. Kidneys: Normal size and shape. Adrenal glands: Normal Pancreas: Unremarkable. Stomach and small bowel: No inflammation or distention noted. Colon: Unremarkable. Appendix: Normal. Bladder: Partially distended and unremarkable. Reproductive system: The uterus appears to be prominent than deviating towards the left side. In the cervix there is suggestion of a nabothian cyst.. Abdominal aorta: Normal caliber. Skeletal: No acute abnormality. IMPRESSION: No acute process noted. Left lower lung pleural-based density posteriorly measuring approximately 1.2 cm. I would recommend a complete CT of the chest for further workup There appears to be a suggestion of a nabothian cyst in the cervix. I would recommend a pelvic and transvaginal sonogram for further evaluation. DICTATED BY: ORACIO ENNIS MD DATE: 06/02/25 1001 ELECTRONICALLY SIGNED BY: ORACIO ENNIS MD DATE: 06/02/25 1006 PATIENT: MICHEAL BENOIT MR#: [id number] : 1995 SEX: F AGE: 30 LOCATION: [facility] ORDER 1017 STATUS: REG ER REPORT#: [id number] SERVICE 1016 REASON: nabothian cyst in the cervix, lt perineum pain ORDERING PHYSICIAN: ALAN TINSLEY MD PROCEDURE: PELVCOMP - US PELVIC NON-OB COMP ADDENDUM REPORT ADDENDUM: EXAM: US Pelvis, Complete transabdominal COMPARISON: CT examination from the same day. CLINICAL HISTORY: nabothian cyst in the cervix, lt perineum pain TECHNIQUE: Transabdominal pelvic ultrasound (complete) with image documentation. FINDINGS: ENDOMETRIUM: Normal thickness. UTERUS/CERVIX: The uterus appears within normal limits. Overall dimensions are 7.8 x 4.0 x 3.3 cm. No uterine fibroid or other mass evident. RIGHT OVARY: Normal Doppler flow. No abnormal mass. LEFT OVARY: Normal Doppler flow. No abnormal mass. FREE FLUID: No free fluid. There is a 4.4 x 3.0 x 4.0 cm abscess within the left perineum that is presumed to reflect a perirectal abscess seen on the correlative CT examination. Clinical correlation is advised. IMPRESSION: 1. 4.4 x 3.0 x 4.0 cm abscess in the left perineum, likely representing a perirectal abscess. Clinical correlation is advised. 2. Otherwise normal pelvic ultrasound. /[place] EXAM: US Pelvis, Complete transabdominal COMPARISON: None provided. CLINICAL HISTORY: nabothian cyst in the cervix, lt perineum pain TECHNIQUE: Transabdominal pelvic ultrasound (complete) with image documentation. FINDINGS: ENDOMETRIUM: Normal thickness. UTERUS/CERVIX: The uterus appears within normal limits. Overall dimensions are 7.8 x 4.0 x 3.3 cm. No uterine fibroid or other mass evident. RIGHT OVARY: Normal Doppler flow. No abnormal mass. LEFT OVARY: Normal Doppler flow. No abnormal mass. FREE FLUID: No free fluid. There is a 4.4 x 3.0 x 4.0 cm abscess within the left perineum that is presumed to reflect a perirectal abscess seen on the correlative CT examination. Clinical correlation is advised. IMPRESSION: 1. 4.4 x 3.0 x 4.0 cm abscess in the left perineum, likely representing a perirectal abscess. Clinical correlation is advised. 2. Otherwise normal pelvic ultrasound. /[place] DICTATED BY: GLEN VELAZQUEZ Jr., MD DATE: 06/02/25 120 ELECTRONICALLY SIGNED BY: DATE: EXAM: US Pelvis, Complete transabdominal COMPARISON: None provided. CLINICAL HISTORY: nabothian cyst in the cervix, lt perineum pain TECHNIQUE: Transabdominal pelvic ultrasound (complete) with image documentation. FINDINGS: ENDOMETRIUM: Normal thickness. UTERUS/CERVIX: The uterus appears within normal limits. Overall dimensions are 7.8 x 4.0 x 3.3 cm. No uterine fibroid or other mass evident. RIGHT OVARY: Normal Doppler flow. No abnormal mass. LEFT OVARY: Normal Doppler flow. No abnormal mass. FREE FLUID: No free fluid. There is a 4.4 x 3.0 x 4.0 cm abscess within the left perineum that is presumed to reflect a perirectal abscess seen on the correlative CT examination. Clinical correlation is advised. IMPRESSION: 1. 4.4 x 3.0 x 4.0 cm abscess in the left perineum, likely representing a perirectal abscess. Clinical correlation is advised. 2. Otherwise normal pelvic ultrasound. /[place] DICTATED BY: GLEN VELAZQUEZ Jr., MD DATE: 06/02/251200 ELECTRONICALLY SIGNED BY: GLEN VELAZQUEZ Jr., MD DATE: 06/02/25 120 Assessment: This is a 30-year-old female with perineal pain likely due to a perianal absc ess. I recommend incision and drainage. The patient has been started on IV antibiotics. I recommend to change those two Zosyn IV. I discussed the procedure in detail with the patient and her mother who was at bedside. All questions were answered. Both expressed understanding and agreement with the plan. LAURA GASTON DO Jun 02, 2025 15:06
--- NOTE | 2025-06-02 15:08 | OP ---
Operative Note: DATE OF PROCEDURE: 06/02/25 SURGEON: LAURA GASTON DO WIRE WELDER: None ANESTHESIA: General ANESTHESIOLOGIST/SENIOR OFFICER: RENNY Mcguire PREOPERATIVE DIAGNOSIS: Left perianal abscess POSTOPERATIVE DIAGNOSIS: Left perianal abscess SYNOPSIS: None PROCEDURE: Incision and drainage of left perianal abscess ESTIMATED BLOOD LOSS: 30 cc INDICATIONS: This is a 30-year-old female with perineal pain. She has a leukocytosis. CT scan and ultrasound showed a large fluid collection called to be nabothian cyst or Bartholin gland cyst. On physical exam the patient has erythema induration and fluctuance in the perineum consistent with perianal abscess. I recommended incision and drainage. I discussed the procedure in detail with the patient and her mother is at bedside. All questions were answered. Both expressed understanding and agreement with plan. DESCRIPTION OF PROCEDURE: The patient was placed on the operating table in the supine position. After adequate sedation the patient was intubated by anesthesia. Perioperative antibiotics were given. The patient was then placed in lithotomy position and the perineum was prepped and draped in the usual sterile fashion. A time-out was performed. A skin incision was made over the area of greatest fluctuance. Copious amounts of purulent drainage were appreciated immediately. Cultures were obtained. The incision was extended as after bluntly exploring the abscess cavity. The wound was copiously irrigated with sterile saline. The wound was packed with 1 in iodoform gauze and dressed with gauze and mesh undergarment. The patient tolerated the procedure well. All instrument, needle, and sponge counts were correct at the end of the procedure. The patient was aroused from sedation, extubated, and transferred to the postanesthesia care unit in good condition. LAURA GASTON DO Jun 02, 2025 15:08
[2025-06-02] MEDS: ZOSYN 3.375GM +NS 50ML IV SCH (17:21)
[2025-06-02] MEDS: FAMOTIDINE 20MG VIAL IV SCH (21:00)
[2025-06-02] MEDS: VANCOMYCIN 1G/250ML KIT 250 ML IV SCH (21:30)
[2025-06-02] MEDS ORDERED: VANCOMYCIN 1G/250ML KIT 250 ML IV SCH (22:00)
[2025-06-03] MEDS: ZOSYN 3.375GM +NS 50ML IV SCH (00:31)
[2025-06-03 04:20] VITALS: BP 111/58; PULSE 70; RESP 18; TEMP 98.1
--- NOTE | 2025-06-03 07:51 | HMCIMG ---
EXAM: CT Chest Without IV contrast CLINICAL HISTORY: Pleural density TECHNIQUE: Axial computed tomography images of the chest without intravenous contrast. COMPARISON: None provided. FINDINGS: LUNGS: Bibasilar consolidations are noted. PLEURAL SPACES: Unremarkable. HEART: Heart size within normal limits. No pericardial effusion. LYMPH NODES: No mediastinal, hilar, or axillary lymphadenopathy evident. UPPER ABDOMEN: See separately dictated report. BONES: No acute osseous abnormality. IMPRESSION: Bibasilar consolidations which could be due to subsegmental atelectasis. Superimposed pneumonia in these regions not excluded. Correlate clinically. /[place]
[2025-06-03 08:00] VITALS: BP 108/68; PULSE 58; RESP 16; TEMP 97.7
[2025-06-03 09:00] VITALS: O2SAT 96
[2025-06-03 10:31] LABS: NUCLEATED RED BLOOD CELLS 0.0 % (0.0-0.19); PLATELET COUNT (AUTO) 339.0 K/uL (130-400); RED BLOOD CELL COUNT(AUTO) 3.48 MIL/uL (4.00-5.50); RED CELL DISTRIBUTION WIDTH 12.8 % (11.0-15.5); WHITE BLOOD COUNT (AUTO) 11.8 K/uL (4.8-10.8)
[2025-06-03] MEDS: FAMOTIDINE 20MG VIAL IV SCH (10:51)
[2025-06-03 11:03] LABS: ASPARTATE AMINOTRANSFERASE 9.0 U/L (10-37); CREATINE KINASE, TOTAL 29.0 U/L (21-232); CREATININE 0.5 mg/dL (0.5-1.0); GLOMERULAR FILTR. RATE CALC 131.0 mL/min (>90); GLUCOSE,RANDOM 99.0 mg/dL (70-105); SODIUM SERUM 141.0 mmol/L (136-145); TOTAL PROTEIN, SERUM 6.1 g/dL (6.0-8.3); UREA NITROGEN, BLOOD 11.0 mg/dL (7-18)
--- NOTE | 2025-06-03 11:32 | PN ---
[facility] PROGRESS NOTE Date of Service: Jun 03, 2025 Time of Service: 11:28 Attending doctor Odin SUBJECTIVE: [ 06/02 30-year-old female history of diabetes who presents to emergency room with complaints of right perineal abscess. Patient states that she was initially seen by her primary care doctor 4-5 days ago. At that time they prescribed Ciprodex. However because the pain was getting worse and there was some minimal drainage they switched her medications over to doxycycline and got lab work. In the interim she was also follow up by them and received two total injections of Rocephin. Since then the blood work came back elevated to the point where her PCP called the patient at 3:00 a.m. in the morning advised the patient to go to the emergency room for evaluation. Patient states that she has never had symptoms like this before. It is progressively worsening and enlarging to the point where she is unable to sit or feel comfortable. Most recent vital signs 100.2 temperature pulse 71 respiration 20 blood pressure 123/71 patient is on room air satting 99%. WBC 25.9 hemoglobin 11.2 hematocrit 34 platelets 385 sodium 139 potassium 3.9 CO2 28 BUN 11 creatinine 0.7 GFR 121 bilirubin 0.1 AST 11 ALT 21 UA negative. Toxicology negative. CT abdomen/pelvis showed no acute process noted. Left lower lung pleural-based density posteriorly measuring approximately 1.[address] of the chest. There is also suggestion of nabothian cyst in the cervix ultrasound recommended. Pelvic ultrasound transvaginal showed 4.4 x3 x 4 cm abscess in left peroneal likely representing a perirectal abscess. Pelvic ultrasound normal. CT chest pending. Patient admitted under hospitalist care for further evaluation/recommendations. A.m. labs 06/03 patient was seen by nurse practitioner and physician during rounding in room 119. Patient is s/p I and D with a 06/02/2025. Ultrasound transvaginal was we ordered. Patient continues to be on vancomycin. WBC 11.8. H&H stable. We are pending ID recommendations as of now. Wound consultation still pending . Urinalysis negative. Wound culture pending. We will continue to monitor patient in the meantime. A.m. labs.] REVIEW OF SYSTEMS CONSTITUTIONAL: Denies fevers, chills, or night sweats. No unintentional weight loss reported. NEUROLOGICAL: Denies headache, amaurosis fugax, motor weakness, sensory deficit, vertigo/spinning sensation, gait abnormalities, or tremors. ENT: No hearing loss, otalgia, otorrhea, rhinitis, rhinorrhea, hoarseness, or sore throat. CARDIOVASCULAR: Denies any exertional angina, dyspnea on exertion, orthopnea, paroxysmal nocturnal dyspnea, palpitations, life-threatening arrhythmias, claudication. PULMONARY: Denies any shortness of breath, cough, phlegm/sputum, hemoptysis, pleuritic chest pain. SLEEP: Denies morning headaches, daytime somnolence or napping. Denies difficulty falling asleep, staying asleep, waking from sleep. Denies knowledge of snoring. GASTROINTESTINAL: Denies any type of dysphagia to either liquids or solids. Denies nausea, vomiting, pyrosis, early satiety, abdominal pain, diarrhea, con stipation, or changes in stool consistency or caliber. Denies coffee-ground emesis, hematemesis, hematochezia, or melanotic stools. GENITOURINARY: Denies frequency, urgency, nocturia, hematuria or incontinence (Storage/Irritative symptoms.) Low urinary stream, straining to void, urinary intermittency or hesitancy, splitting of the voiding stream, terminal dribbling. Perirectal s/p I and D pain ENDOCRINOLOGIC: Denies polyuria, polydipsia, polyphagia or heat/cold intolerances. HEMATOLOGIC: Denies thrombophilia/previous clots, or coagulopathy/bleeding disorders. ONCOLOGIC: Denies personal history of malignancy. DERMATOLOGIC: Denies rashes or pruritus. PSYCHIATRIC: Denies any suicidal or homicidal ideation. Denies hallucinations. PHYSICAL EXAM GENERAL APPEARANCE: The patient is awake, alert, and oriented, in no acute cardiopulmonary distress. NEUROLOGICAL: Cranial nerves II-XII grossly intact. Motor is 5/5 in bilateral upper and lower extremities proximal to distal. No sensory deficits. HEENT: Face is symmetric. Pupils are equal and reactive. Extraocular movements are intact. NECK: Supple. No JVD. No thyromegaly. No submental, submandibular, pre- /postauricular, occipital or supraclavicular lymphadenopathy. CHEST: Normal chest expansion. No Telemetry. LUNGS: Absence of any rales, rhonchi or any wheezing. CARDIOVASCULAR: Regular. S1 and S2 normal. No appreciable rubs, murmurs or gallops. ABDOMEN: Soft, nontender, and nondistended. There is no rebound, voluntary guarding, or rigidity. : Deferred. No Negron. EXTREMITIES: Non-edematous and not cyanotic. No clubbing. Good capillary refill. SKIN: No skin breakdown. Vital Signs (last 8hr) Date Time Temp Pulse Resp B/P (MAP) Pulse Ox O2 Delivery O2 Flow Rate FiO2 06/03/25 08:00 97.7 58 16 108/68 96 Room Air 06/03/25 04:20 98.1 70 18 111/58 98 Room Air 0.0 LABS: Laboratory: Test 06/03/25 10:14 06/02/25 16:46 06/02/25 08:15 06/02/25 07:53 Range/Units White Blood Count 11.8 H 4.8-10.8 K/uL Red Blood Count 3.48 L 4.00-5.50 MIL/uL Hemoglobin 10.1 L 12.0-16.0 g/dL Hematocrit 30.5 L 36-48 % Mean Corpuscular Volume 87.6 79-99 fL Mean Corpuscular Hemoglobin 29.0 27.0-33.0 pg Mean Corpuscular Hemoglobin Concent 33.1 32.0-36.0 g/dL Red Cell Distribution Width 12.8 11.0-15.5 % Platelet Count 339 130-400 K/uL Mean Platelet Volume 9.3 7.5-10.5 fL Nucleated Red Blood Cells 0.0 0.0-0.19 % Sodium Level 141 136-145 mmol/L Potassium Level 4.4 3.5-5.1 mmol/L Chloride Level 105 101-111 mmol/L Carbon Dioxide Level 31 21-32 mmol/L Blood Urea Nitrogen 11 7-18 mg/dL Creatinine 0.5 0.5-1.0 mg/dL Glomerular Filtration Rate Calc 131 >90 mL/min Random Glucose 99 70-105 mg/dL Hemoglobin A1c 5.6 4.0-6.0 % Estimated Average Glucose (eAG) 114 70-126 mg/dL Lactic Acid Level 1.2 0.8-2.5 mmol/L Total Calcium 8.4 L 8.5-10.1 mg/dL Total Bilirubin 0.3 0.2-1.0 mg/dL Direct Bilirubin 0.1 0.0-0.3 mg/dL Aspartate Amino Transf (AST/SGOT) 9 L 10-37 U/L Alanine Aminotransferase (ALT/SGPT) 16 12-78 U/L Alkaline Phosphatase 60 50-136 U/L Total Creatine Kinase 29 21-232 U/L Total Protein 6.1 6.0-8.3 g/dL Albumin 2.7 L 3.5-5.0 g/dL Procalcitonin < 0.05 L 0.05-0.5 ng/mL Thyroid Stimulating Hormone (TSH) 1.74 0.36-3.74 uIU/mL Free Thyroxine (T4) Direct 1.31 0.76-1.46 ng/dL Free Triiodothyronine (T3) pg/mL 2.40 2.18-3.98 pg/mL Whole Blood Glucose 81 70-110 MG/DL Urine Color YELLOW YELLOW Urine Appearance CLOUDY H CLEAR Urine pH 5.5 5.0-8.0 Urine Specific [place] 1.031 1.001-1.031 Urine Protein 20 H NEGATIVE mg/dL Urine Glucose (UA) NEGATIVE NEGATIVE mg/dL Urine Ketones NEGATIVE NEGATIVE mg/dL Urine Occult Blood LARGE H NEGATIVE Urine Nitrate NEGATIVE NEGATIVE Urine Bilirubin NEGATIVE NEGATIVE mg/dL Urine Urobilinogen 0.2 0.2-1.0 mg/dL Urine Leukocyte Esterase NEGATIVE NEGATIVE Mila/uL Urine RBC TNTC H 0-1 /HPF Urine WBC 26-50 H 0-1 /HPF Urine Squamous Epithelial Cells FEW 0-2 /HPF Urine Bacteria RARE None Seen /HPF Urine Opiates Screen NEGATIVE NEGATIVE Urine Barbiturates Screen NEGATIVE NEGATIVE Urine Phencyclidine Screen NEGATIVE NEGATIVE Urine Amphetamines Screen NEGATIVE NEGATIVE Urine Benzodiazepines Screen NEGATIVE NEGATIVE Urine Cocaine Screen NEGATIVE NEGATIVE Urine Marijuana (THC) Screen NEGATIVE NEGATIVE Immature Granulocyte % (Auto) 0.8 0-1 % Neutrophils (%) (Auto) 79.3 H 40.0-77.0 % Lymphocytes (%) (Auto) 11.2 L 21.0-51.0 % Monocytes (%) (Auto) 7.9 3.0-13.0 % Eosinophils (%) (Auto) 0.5 0.0-8.0 % Basophils (%) (Auto) 0.3 0.0-5.0 % Neutrophils # (Auto) 20.5 H 1.8-7.7 K/uL Lymphocytes # (Auto) 2.9 1.0-4.8 K/uL Monocytes # (Auto) 2.1 H 0.1-1.0 K/uL Eosinophils # (Auto) 0.13 0.00-0.70 K/uL Basophils # (Auto) 0.08 0.00-0.20 K/uL Absolute Immature Granulocyte (auto 0.20 0-1 K/uL Serum Test, Qualitative NEGATIVE NEGATIVE Current Medications Medications (Trade) Dose Ordered Sig/Kenzie Route PRN Reason Start Time Stop Time Status Last Admin Dose Admin Acetaminophen (TYLenol 325MG TAB) 650 mg Q4H PRN PO MILD PAIN (1-3) 06/02/25 12:00 07/02/25 11:59 Acetaminophen (TYLenol 325MG TAB) 650 mg Q6H PRN PO MILD PAIN (1-3) 06/02/25 12:00 06/02/25 11:44 DC Acetaminophen (TYLenol 325MG TAB) 650 mg Q6H PRN PO TEMPERATURE GREATER THAN 101.5 06/02/25 12:00 07/02/25 11:59 Acetaminophen/ Hydrocodone Bitart (NORco 5/325MG) 1 tab Q6H PRN PO SEVERE PAIN (7-10) 06/02/25 12:00 06/02/25 21:18 DC Acetaminophen/ Hydrocodone Bitart (NORco 5/325MG) 1 tab Q6H PRN PO SEVERE PAIN (7-10) 06/02/25 21:30 06/07/25 21:29 Al Hydroxide/Mg Hydroxide (MAALox PLUS 30ML) 30 ml Q6H PRN PO INDIGESTION 06/02/25 12:00 06/02/25 21:21 DC Al Hydroxide/Mg Hydroxide (MAALox PLUS 30ML) 30 ml Q6H PRN PO INDIGESTION 06/02/25 21:30 07/02/25 21:29 Dextrose (D50w) 50 ml AD PRN IV HYPOGLYCEMIA PROTOCOL 06/02/25 12:00 06/02/25 21:15 DC Dextrose (D50w) 50 ml AD PRN IV HYPOGLYCEMIA PROTOCOL 06/02/25 21:30 07/02/25 21:29 Diphenhydramine HCl (BENAdryl INJ) 25 mg Q6H PRN IV SEVERE ITCHING/RASH 06/02/25 12:00 07/02/25 11:59 Famotidine (Pepcid 20mg Vial) 20 mg BID IV 06/02/25 21:00 06/03/25 10:00 DC Famotidine (Pepcid 20mg Vial) 20 mg BID IV 06/03/25 10:05 07/03/25 10:04 06/03/25 10:51 20 MG Famotidine (Pepcid 20mg Vial) 20 mg BID PRN IV NAUSEA/VOMITING 06/02/25 12:00 06/02/25 11:44 DC Glucagon (Glucagon 1mg Kit) 1 mg AD PRN IM HYPOGLYCEMIA PROTOCOL 06/02/25 12:00 06/02/25 21:16 DC Glucagon (Glucagon 1mg Kit) 1 mg AD PRN IM HYPOGLYCEMIA PROTOCOL 06/02/25 21:30 07/02/25 21:29 Guaifenesin/ Dextromethorphan (RobiTUSSin DM 200/20MG 10ML) 10 ml Q4H PRN PO COUGH 06/02/25 12:00 06/02/25 21:22 DC Guaifenesin/ Dextromethorphan (RobiTUSSin DM 200/20MG 10ML) 10 ml Q4H PRN PO COUGH 06/02/25 21:30 07/02/25 21:29 Hydralazine HCl (APRESOLine 20MG INJ) 10 mg Q6H PRN IV For:SBP above 160;DBP above 90 06/02/25 12:00 06/02/25 21:22 DC Hydralazine HCl (APRESOLine 20MG INJ) 10 mg Q6H PRN IV For:SBP above 160;DBP above 90 06/02/25 21:30 07/02/25 21:29 Insulin Human Regular (humuLIN R 100 UNIT/ML 3ML) INSULIN SLIDING SCAL... ACHS SQ 06/02/25 16:30 06/02/25 21:15 DC Insulin Human Regular (humuLIN R 100 UNIT/ML 3ML) INSULIN SLIDING SCAL... ACHS SQ 06/03/25 07:30 07/03/25 07:29 Ketorolac Tromethamine (toRADol) 15 mg Q8H PRN IV MODERATE PAIN (4-6) 06/02/25 12:00 06/02/25 21:18 DC Ketorolac Tromethamine (toRADol) 15 mg Q8H PRN IV MODERATE PAIN (4-6) 06/02/25 21:30 06/07/25 21:29 06/03/25 10:51 15 MG Lactulose (Constulose 20gm/ 30ml Udcup) 20 gm BID PRN PO CONSTIPATION 06/02/25 12:00 06/02/25 21:22 DC Lactulose (Constulose 20gm/ 30ml Udcup) 20 gm BID PRN PO CONSTIPATION 06/02/25 21:30 07/02/25 21:29 Magnesium Sulfate 50 ml @ 0 mls/hr PROTOCOL PRN IV other 06/02/25 12:00 06/02/25 21:21 DC Magnesium Sulfate 50 ml @ 0 mls/hr PROTOCOL PRN IV other 06/02/25 21:30 07/02/25 21:29 Morphine Sulfate (morPHINE 2MG SYG) 1 mg Q4H PRN IVP SEVERE PAIN (7-10) 06/02/25 12:00 06/02/25 11:44 DC Nitroglycerin (Nitrostat) 0.4 mg PROTOCOL PRN SL CHEST PAIN 06/02/25 12:00 06/02/25 21:22 DC Nitroglycerin (Nitrostat) 0.4 mg PROTOCOL PRN SL CHEST PAIN 06/02/25 21:30 07/02/25 21:29 Ondansetron HCl (zoFRAN 4MG INJ) 4 mg Q6H PRN IV NAUSEA/VOMITING 06/02/25 12:00 06/02/25 21:21 DC Ondansetron HCl (zoFRAN 4MG INJ) 4 mg Q6H PRN IV NAUSEA/VOMITING 06/02/25 21:30 07/02/25 21:29 Piperacillin Sod/ Tazobactam Sod (Zosyn 3.375gm+NS 50ml) 3.375 gm Q8H IV 06/02/25 15:30 06/02/25 21:19 DC 06/02/25 17:21 3.375 GM Piperacillin Sod/ Tazobactam Sod (Zosyn 3.375gm+NS 50ml) 3.375 gm Q8H IV 06/03/25 01:00 06/13/25 00:59 06/03/25 09:29 3.375 GM Potassium Chloride 100 ml @ 100 mls/hr AD PRN IV POTASSIUM PROTOCOL 06/02/25 12:00 06/02/25 21:17 DC Potassium Chloride 100 ml @ 100 mls/hr AD PRN IV POTASSIUM PROTOCOL 06/02/25 21:30 07/02/25 21:29 Potassium Chloride (K-Dur/Klor-Con 20meq) 20 meq AD PRN PO POTASSIUM PROTOCOL 06/02/25 12:00 06/02/25 21:20 DC Potassium Chloride (K-Dur/Klor-Con 20meq) 20 meq AD PRN PO POTASSIUM PROTOCOL 06/02/25 21:30 07/02/25 21:29 Potassium Chloride (KCl 10% Elixir 20meq/15ml) 20 meq AD PRN PO POTASSIUM PROTOCOL 06/02/25 12:00 06/02/25 21:17 DC Potassium Chloride (KCl 10% Elixir 20meq/15ml) 20 meq AD PRN PO POTASSIUM PROTOCOL 06/02/25 21:30 07/02/25 21:29 Sodium Chloride 1,000 ml @ 100 mls/hr Q10H IV 06/02/25 12:00 07/02/25 11:59 06/03/25 09:26 100 MLS/HR Vancomycin HCl 250 ml @ 125 mls/hr Q8H IV 06/02/25 22:00 06/12/25 21:59 06/03/25 06:09 125 MLS/HR Vancomycin HCl 250 ml @ 125 mls/hr Q8H IV 06/02/25 22:00 06/02/25 21:18 DC Vancomycin HCl (Vancomycin Protocol) 1 each PROTOCOL PRN IV VANCOMYCIN PROTOCOL 06/02/25 12:00 06/16/25 11:59 Zolpidem Tartrate (AmbIEN) 5 mg HS PRN PO INSOMNIA 06/02/25 12:00 06/02/25 21:19 DC Zolpidem Tartrate (AmbIEN) 5 mg HS PRN PO INSOMNIA 06/02/25 21:30 07/02/25 21:29 DIAGNOSTICS / RADIOLOGY: [ ] ASSESSMENT: [ sepsis POA Rectal abscess POA nabothian cyst in cervix per CT abdomen/pelvis POA Community-acquired PNA per cxray Leukocytosis POA Multifactorial anemia POA] PLAN: [ Patient is s/p I and D with a 06/02/2025. Ultrasound transvaginal was we ordered. Patient continues to be on vancomycin. WBC 11.8. H&H stable. We are pending ID recommendations as of now. Wound consultation still pending . Urinalysis negative. Wound culture pending. We will continue to monitor patient in the meantime. A.m. labs. Patient admitted to medical-surgical floor under hospitalist care Surgeon consulted for perirectal abscess Normal saline at 100 mL/hour CT abdomen/pelvis showed pleural density nabothian cyst in cervix Pelvic ultrasound showed abscess left peroneal CT chest atelectasis, PNA Ultrasound transvaginal pending A.m. labs Potassium magnesium protocol Hypo hyper glycemia protocol ] ATTESTATION BY PHYSICIAN I have seen and examined the patient. I reviewed the documentation, medical decision making, and treatment plan as noted by the mid-level provider above. I agree with the findings and plan of care. CECILIA CALVERT MD, [facility]AT[employer] MACHINE OPERATOR Jun 03, 2025 11:32
[2025-06-03 12:00] VITALS: BP 108/67; PULSE 51; RESP 15; TEMP 98.1
--- NOTE | 2025-06-03 13:14 | HMCIMG ---
EXAM: Ultrasound Pelvis, Transvaginal CLINICAL HISTORY: Nabothian cyst in the cervix. TECHNIQUE: Transvaginal sonographic examination of the pelvis was performed for evaluation of the uterus, cervix, ovaries, and adnexa. COMPARISON: Prior ultrasound dated June 02, 2025. FINDINGS: UTERUS: The uterus measures 8.3 ??? 3.6 ??? 5.0 cm. Myometrial echotexture is homogeneous. A small Nabothian cyst is seen in the cervix, measuring approximately 5 ??? 4 mm. ENDOMETRIUM: Endometrial thickness measures 2 mm. The endometrial echo complex appears normal in thickness and echogenicity for the reported menstrual phase. RIGHT OVARY: The right ovary measures 2.9 ??? 2.7 ??? 1.3 cm. Normal vascular flow is demonstrated on color Doppler. A dominant follicle measuring 9 ??? 5 mm is seen. LEFT OVARY: The left ovary measures 1.8 ??? 1.1 ??? 1.6 cm. Normal vascular flow is demonstrated. A follicle measuring 7 ??? 6 ??? 6 mm is noted. CUL-DE-SAC: No free fluid is seen. IMPRESSION: Normal-sized uterus with homogeneous myometrium. Nabothian cyst in the cervix measuring approximately 5 ??? 4 mm. Normal endometrial thickness of 2 mm. Bilateral ovaries normal in size and vascularity with small follicles as described. No adnexal mass or free fluid. Specifically, previously noted collection is not appreciated on today's examination. Compared to prior ultrasound dated June 02, 2025, no new abnormality is seen. /Diggs
[2025-06-03 16:00] VITALS: BP 114/72; PULSE 65; RESP 17; TEMP 98.4
--- NOTE | 2025-06-03 17:12 | NUR ---
cm note met with pt and mother. pt states lives with mother and extended family, works from home independent with adls/ambulation no dme no home services. dc plan is back home at time of dc. no dc needs. mother can assist with wound care if needed. Addendum: 06/03/25 at 1715 by MICHELLE EATON CM Amended: Links added.
--- NOTE | 2025-06-03 19:24 | PN ---
This is a 30-year-old female POD # one from incision and drainage of left perianal abscess. Patient reports pain is fairly well controlled. She had a lot of pain during dressing change today. White count is almost normalized. Patient remains afebrile and hemodynamically stable. Continue with daily packing changes. We will add 0.5 mg of IV Dilaudid every dressing change as needed. Case work to see the patient and work on a home health for daily packing changes. Patient is okay for discharge once those are arranged. Vitals/Labs Vital Signs Date Time Temp Pulse Resp B/P (MAP) Pulse Ox O2 Delivery O2 Flow Rate FiO2 06/03/25 16:00 98.4 65 17 114/72 99 Room Air 06/03/25 09:00 0 21 Laboratory Tests 06/03/25 10:14 LAURA GASTON DO Jun 03, 2025 19:24
[2025-06-03 20:00] VITALS: BP 103/69; PULSE 50; RESP 16; TEMP 97.9; O2SAT 97
--- NOTE | 2025-06-03 21:32 | CONS ---
INFECTIOUS DISEASE CONSULTATION DATE OF SERVICE: 06/03/2025 REFERRING PHYSICIAN: Dr. Newby. REASON FOR CONSULTATION: Sepsis and perianal abscess. HISTORY OF PRESENT ILLNESS: A 30-year-old female with no significant medical history, presented to the hospital with perirectal swelling, pain and fever. The patient's symptoms started 3 days prior to presentation. T-max was 100.2, WBC was 25,000. Imaging of the abdomen and pelvis done showed right perineal abscess. The patient was seen by the surgical team for incision and drainage. The patient has been started on vancomycin and Zosyn. Culture is pending. Awaiting results, the patient will be started on Cipro. PAST MEDICAL HISTORY: None. PAST SURGICAL HISTORY: None. ALLERGIES: No known drug allergies. SOCIAL HISTORY: No alcohol, tobacco or illicit drug use. FAMILY HISTORY: Noncontributory. REVIEW OF SYSTEMS: CONSTITUTIONAL: No fever or chills. No weight loss or night sweats. EYES: No eye pain. No photophobia or diplopia. HENT: No sore throat. No rhinorrhea or earache. NECK: No neck pain or neck swelling. RESPIRATORY: Positive for cough. No hemoptysis. No pleuritic pain CARDIOVASCULAR: No chest pain. No palpitation or orthopnea. GASTROINTESTINAL: Denies nausea, vomiting, or abdominal pain. GENITOURINARY: No dysuria, urgency or urinary frequency. CENTRAL NERVOUS SYSTEM: No headache, dizziness, or slurred speech. PSYCHIATRY: No depression. No suicidal ideation. PHYSICAL EXAMINATION: GENERAL: A young white female, awake. VITAL SIGNS: Temperature 97.7, pulse 50, respirations 16, blood pressure 108/58. EYES: No icterus. Pupils are equal and reactive. HENT: No oral thrush seen. Moist oral mucosa. NECK: Supple. No JVD or thyromegaly. LUNGS: Good air entry. No rales, no rhonchi. CARDIOVASCULAR: S1 and S2. Regular. No murmur heard. ABDOMEN: Obese, soft, nontender. Bowel sound is present. CENTRAL NERVOUS SYSTEM: Awake, alert, oriented x 3. No focal deficits. SKIN: No rashes. LYMPHATIC: No peripheral lymphadenopathy. MUSCULOSKELETAL: No joint swelling, erythema or tenderness. RECTAL: Wound in the right perirectal area, . LABORATORY DATA: Sodium 141, potassium 4.4, BUN 11, creatinine 0.5. WBC 11, hemoglobin 9.1, platelets 139. UA showed wbc's 3, leukocyte esterase negative. Culture . ASSESSMENT: A 30-year-old female presenting with fever, chills, and rectal pain. * Sepsis. * Right perirectal abscess, status post incision and drainage. * Leukocytosis. * Anemia. * Obesity. PLAN: * Continue Zosyn. * Continue vancomycin. * Continue wound care. * Continue pain management. * Follow up cultures. * Continue nutrition support. * Continue GI prophylaxis. * Monitor electrolytes. * The patient will be followed up closely. Thank you for allowing me to participate in the care of this patient. TID: [id number] RECEIPT: [id number]
[2025-06-04] VITALS: BP 112/70; PULSE 51; RESP 16; TEMP 97.5
[2025-06-04 04:00] VITALS: BP 118/69; PULSE 53; RESP 16; TEMP 97.5
[2025-06-04 05:54] LABS: IMMATURE GRANULOCYTE ABSOLUTE 0.05 K/uL (0-1); NUCLEATED RED BLOOD CELLS 0.0 % (0.0-0.19); PLATELET COUNT (AUTO) 325 K/uL (130-400); RED BLOOD CELL COUNT(AUTO) 3.40 MIL/uL (4.00-5.50); RED CELL DISTRIBUTION WIDTH 12.7 % (11.0-15.5); WHITE BLOOD COUNT (AUTO) 8.4 K/uL (4.8-10.8)
[2025-06-04 06:10] LABS: ASPARTATE AMINOTRANSFERASE 8.0 U/L (10-37); CREATININE 0.6 mg/dL (0.5-1.0); GLOMERULAR FILTR. RATE CALC 125.0 mL/min (>90); GLUCOSE,RANDOM 81.0 mg/dL (70-105); SODIUM SERUM 142.0 mmol/L (136-145); TOTAL PROTEIN, SERUM 6.1 g/dL (6.0-8.3); UREA NITROGEN, BLOOD 13.0 mg/dL (7-18)
[2025-06-04 07:39] VITALS: BP 114/79; PULSE 55; RESP 18; TEMP 98
--- NOTE | 2025-06-04 10:28 | PN ---
INFECTIOUS DISEASE PROGRESS NOTE Date of Service: Jun 04, 2025 SUBJECTIVE: This is a 30-year-old female patient admitted for left perirectal abscess which was being managed as outpatient but failed outpatient treatment. A pelvic ultrasound showed a left perirectal abscess and patient underwent an I&D on 06/02/2025. WBC on admission was 25.9 which has trended down to 8.4 today. No reports of fever for the past 24 hours and patient continues on vancomycin and Zosyn. We will follow up on the wound culture results. PHYSICAL EXAM EYES: Anicteric. Pupils equal and reactive. HENT: No oral thrush seen, moist Oral mucosa. NECK: Supple, no JVD or thyromegaly. LUNGS: Good air entry. No rales, no rhonchi. CARDIOVASCULAR: S1, S2 regular. No murmur heard. ABDOMEN: Soft, non tender, bowel sounds present, no organomegaly. CENTRAL NERVOUS SYSTEM: Awake, alert, oriented x 3. SKIN: No rashes, no swelling. LYMPHATICS: No peripheral lymphadenopathy MUSCULOSKELETAL: No joint swelling, erythema or tenderness. EXTREMITIES: No cyanosis or clubbing BACK: No deformity, no pressure ulcer. Left perirectal abscess, s/p I/D. GENITOURINARY: No dysuria or hematuria. Vital Sign (Last 12 Hours) 06/04/25 06/04/25 06/04/25 00:00 04:00 07:39 Temp 97.5 97.5 98.1 Pulse 51 53 55 Resp 16 16 18 B/P (MAP) 112/70 118/69 114/79 Pulse Ox 99 97 99 O2 Delivery Room Air Room Air Room Air LABS: Laboratory: Test 06/04/25 05:12 06/04/25 05:11 06/03/25 13:07 06/03/25 10:14 Range/Units White Blood Count 8.4 # 4.8-10.8 K/uL Red Blood Count 3.40 L 4.00-5.50 MIL/uL Hemoglobin 9.9 L 12.0-16.0 g/dL Hematocrit 30.1 L 36-48 % Mean Corpuscular Volume 88.5 79-99 fL Mean Corpuscular Hemoglobin 29.1 27.0-33.0 pg Mean Corpuscular Hemoglobin Concent 32.9 32.0-36.0 g/dL Red Cell Distribution Width 12.7 11.0-15.5 % Platelet Count 325 130-400 K/uL Mean Platelet Volume 9.6 7.5-10.5 fL Immature Granulocyte % (Auto) 0.6 0-1 % Neutrophils (%) (Auto) 51.2 40.0-77.0 % Lymphocytes (%) (Auto) 34.3 21.0-51.0 % Monocytes (%) (Auto) 9.3 3.0-13.0 % Eosinophils (%) (Auto) 4.1 0.0-8.0 % Basophils (%) (Auto) 0.5 0.0-5.0 % Neutrophils # (Auto) 4.3 1.8-7.7 K/uL Lymphocytes # (Auto) 2.9 1.0-4.8 K/uL Monocytes # (Auto) 0.8 0.1-1.0 K/uL Eosinophils # (Auto) 0.34 0.00-0.70 K/uL Basophils # (Auto) 0.04 0.00-0.20 K/uL Absolute Immature Granulocyte (auto 0.05 0-1 K/uL Nucleated Red Blood Cells 0.0 0.0-0.19 % Sodium Level 142 136-145 mmol/L Potassium Level 4.0 3.5-5.1 mmol/L Chloride Level 107 101-111 mmol/L Carbon Dioxide Level 30 21-32 mmol/L Blood Urea Nitrogen 13 7-18 mg/dL Creatinine 0.6 0.5-1.0 mg/dL Glomerular Filtration Rate Calc 125 >90 mL/min Random Glucose 81 70-105 mg/dL Total Calcium 8.3 L 8.5-10.1 mg/dL Magnesium Level 2.20 1.80-2.40 mg/dL Total Bilirubin 0.2 # 0.2-1.0 mg/dL Aspartate Amino Transf (AST/SGOT) 8 L 10-37 U/L Alanine Aminotransferase (ALT/SGPT) 14 12-78 U/L Alkaline Phosphatase 51 50-136 U/L Total Protein 6.1 6.0-8.3 g/dL Albumin 2.4 L 3.5-5.0 g/dL Whole Blood Glucose 85 70-110 MG/DL Vancomycin Level Trough 11.5 10.0-20.0 UG/ML Hemoglobin A1c 5.6 4.0-6.0 % Estimated Average Glucose (eAG) 114 70-126 mg/dL Lactic Acid Level 1.2 0.8-2.5 mmol/L Direct Bilirubin 0.1 0.0-0.3 mg/dL Total Creatine Kinase 29 21-232 U/L Procalcitonin < 0.05 L 0.05-0.5 ng/mL Thyroid Stimulating Hormone (TSH) 1.74 0.36-3.74 uIU/mL Free Thyroxine (T4) Direct 1.31 0.76-1.46 ng/dL Free Triiodothyronine (T3) pg/mL 2.40 2.18-3.98 pg/mL DIAGNOSTICS / RADIOLOGY: PATIENT: MICHEAL BENOIT ACCT: [id number] LOC: 1MS U: [id number] AGE/SX: 30/F ROOM: [facility] RE06/02/[address] [facility] [address]: CECILIA CALVERT MD : 1995 BED: 1 DIS: STATUS: ADM IN TLOC: ---- -------- SPEC: [id number] BERNARD: 06/02/251 STATUS: RES REQ: [id number] RECD: 06/02/[address]: CECILIA CALVERT MD SOURCE: OTHER SOUR ENTR: 06/03/25-6145 [facility] DR: MIRTA JACOBS MD SPDESC: OTHER RADHA JARAMILLO,SILVA ROD MD ORDERED: GRAM STAIN, OLI CULTURE, AEROBIC CULTURE COMMENTS: LEFT PERIANAL ABSCESS LEFT PERIANAL ABSCESS LEFT PERIANAL ABSCESS LEFT PERIANAL ABSCESS LEFT PERIANAL ABSCESS LEFT PERIANAL ABSCESS LEFT PERIANAL ABSCESS LEFT PERIANAL ABSCESS LEFT PERIANAL ABSCESS LEFT PERIANAL ABSCESS LEFT PERIANAL ABSCESS LEFT PERIANAL ABSCESS LEFT PERIANAL ABSCESS Procedure Result Jana Date-Time GRAM STAIN Final 06/03/25 1+ GRAM POSITIVE RODS ANAEROBIC CULTURE Preliminary 06/05/25 [facility] DESCRIPTION: REPORT 1: NO ANAEROBES AT 16-23 HOURS; STUDIES TO CONTINUE REPORT 2: NO ANAEROBES AT 36-47 HOURS; STUDIES TO CONTINUE Test(s) performed by: [facility] [address] [place] [address] AEROBIC CULTURE Preliminary 06/05/25 [facility] DESCRIPTION: REPORT 1: NO GROWTH AT 16-23 HOURS; STUDIES TO CONTINUE REPORT 2: NO GROWTH AT 36-47 HOURS; STUDIES TO CONTINUE ASSESSMENT: Left perirectal abscess, status post I&D on 06/02/2025. Failed outpatient antibiotic treatment. Leukocytosis, resolving. PLAN: Continue Zosyn IV. Continue vancomycin per pharmacy protocol. Continue pain management. Continue GI prophylaxis. We will follow up on the culture results. This case was reviewed and discussed with my supervising physician Dr. Jacobs and the above assessment and plan was formulated and agreed upon. ATTESTATION BY PHYSICIAN I have seen and examined the patient. I reviewed the documentation, medical decision making, and treatment plan as noted by the mid-level provider above. I agree with the findings and plan of care. MIRTA JACOBS MD, MIRTA L [facility] Jun 04, 2025 10:28
--- NOTE | 2025-06-04 10:39 | PN ---
[facility] PROGRESS NOTE Date of Service: Jun 04, 2025 Time of Service: 10:[address] Waller SUBJECTIVE: [ 06/02 30-year-old female history of diabetes who presents to emergency room with complaints of right perineal abscess. Patient states that she was initially seen by her primary care doctor 4-5 days ago. At that time they prescribed Ciprodex. However because the pain was getting worse and there was some minimal drainage they switched her medications over to doxycycline and got lab work. In the interim she was also follow up by them and received two total injections of Rocephin. Since then the blood work came back elevated to the point where her PCP called the patient at 3:00 a.m. in the morning advised the patient to go to the emergency room for evaluation. Patient states that she has never had symptoms like this before. It is progressively worsening and enlarging to the point where she is unable to sit or feel comfortable. Most recent vital signs 100.2 temperature pulse 71 respiration 20 blood pressure 123/71 patient is on room air satting 99%. WBC 25.9 hemoglobin 11.2 hematocrit 34 platelets 385 sodium 139 potassium 3.9 CO2 28 BUN 11 creatinine 0.7 GFR 121 bilirubin 0.1 AST 11 ALT 21 UA negative. Toxicology negative. CT abdomen/pelvis showed no acute process noted. Left lower lung pleural-based density posteriorly measuring approximately 1.[address] of the chest. There is also suggestion of nabothian cyst in the cervix ultrasound recommended. Pelvic ultrasound transvaginal showed 4.4 x3 x 4 cm abscess in left peroneal likely representing a perirectal abscess. Pelvic ultrasound normal. CT chest pending. Patient admitted under hospitalist care for further evaluation/recommendations. A.m. labs 06/03 patient was seen by nurse practitioner and physician during rounding in room 119. Patient is s/p I and D with a 06/02/2025. Ultrasound transvaginal was we ordered. Patient continues to be on vancomycin. WBC 11.8. H&H stable. We are pending ID recommendations as of now. Wound consultation still pending . Urinalysis negative. Wound culture pending. We will continue to monitor patient in the meantime. A.m. labs.] 06/04 patient was seen by ASH KIER BOILER and physician during rounding. As per Infectious Disease doctor continue Zosyn and vancomycin. We are pending still final wound culture. As per surgeon patient remains afebrile and hemodynamically stable. White blood canceled almost normalized. Continue daily packing. Case management consult for home with the home health for daily packing changes. Patient is cleared to be discharged once the arrangement is completed. We anticipated discharge patient home within 24 hours once final cultures are back and IV versus p.o. antibiotics per ID we will be recommended. In the meantime we will continue to monitor patient. A.m. labs REVIEW OF SYSTEMS CONSTITUTIONAL: Denies fevers, chills, or night sweats. No unintentional weight loss reported. NEUROLOGICAL: Denies headache, amaurosis fugax, motor weakness, sensory deficit, vertigo/spinning sensation, gait abnormalities, or tremors. ENT: No hearing loss, otalgia, otorrhea, rhinitis, rhinorrhea, hoarseness, or sore throat. CARDIOVASCULAR: Denies any exertional angina, dyspnea on exertion, orthopnea, paroxysmal nocturnal dyspnea, palpitations, life-threatening arrhythmias, claudication. PULMONARY: Denies any shortness of breath, cough, phlegm/sputum, hemoptysis, pleuritic chest pain. SLEEP: Denies morning headaches, daytime somnolence or napping. Denies difficulty falling asleep, staying asleep, waking from sleep. Denies knowledge of snoring. GASTROINTESTINAL: Denies any type of dysphagia to either liquids or solids. Denies nausea, vomiting, pyrosis, early satiety, abdominal pain, diarrhea, constipation, or changes in stool consistency or caliber. Denies coffee-ground emesis, hematemesis, hematochezia, or melanotic stools. GENITOURINARY: Denies frequency, urgency, nocturia, hematuria or incontinence (Storage/Irritative symptoms.) Low urinary stream, straining to void, urinary intermittency or hesitancy, splitting of the voiding stream, terminal dribbling. Perirectal s/p I and D pain ENDOCRINOLOGIC: Denies polyuria, polydipsia, polyphagia or heat/cold intolerances. HEMATOLOGIC: Denies thrombophilia/previous clots, or coagulopathy/bleeding disorders. ONCOLOGIC: Denies personal history of malignancy. DERMATOLOGIC: Denies rashes or pruritus. Perirectal wound s/p I and D with the packing PSYCHIATRIC: Denies any suicidal or homicidal ideation. Denies hallucinations. PHYSICAL EXAM GENERAL APPEARANCE: The patient is awake, alert, and oriented, in no acute car diopulmonary distress. NEUROLOGICAL: Cranial nerves II-XII grossly intact. Motor is 5/5 in bilateral upper and lower extremities proximal to distal. No sensory deficits. HEENT: Face is symmetric. Pupils are equal and reactive. Extraocular movements are intact. NECK: Supple. No JVD. No thyromegaly. No submental, submandibular, pre- /postauricular, occipital or supraclavicular lymphadenopathy. CHEST: Normal chest expansion. No Telemetry. LUNGS: Absence of any rales, rhonchi or any wheezing. CARDIOVASCULAR: Regular. S1 and S2 normal. No appreciable rubs, murmurs or gallops. ABDOMEN: Soft, nontender, and nondistended. There is no rebound, voluntary guarding, or rigidity. : Deferred. No Negron. EXTREMITIES: Non-edematous and not cyanotic. No clubbing. Good capillary refill. SKIN: No skin breakdown. S/p I and D perirectal area Vital Signs (last 8hr) Date Time Temp Pulse Resp B/P (MAP) Pulse Ox O2 Delivery O2 Flow Rate FiO2 06/04/25 07:39 98.1 55 18 114/79 99 Room Air 06/04/25 04:00 97.5 53 16 118/69 97 Room Air LABS: Laboratory: Test 06/04/25 05:12 06/04/25 05:11 06/03/25 13:07 06/03/25 10:14 Range/Units White Blood Count 8.4 # 4.8-10.8 K/uL Red Blood Count 3.40 L 4.00-5.50 MIL/uL Hemoglobin 9.9 L 12.0-16.0 g/dL Hematocrit 30.1 L 36-48 % Mean Corpuscular Volume 88.5 79-99 fL Mean Corpuscular Hemoglobin 29.1 27.0-33.0 pg Mean Corpuscular Hemoglobin Concent 32.9 32.0-36.0 g/dL Red Cell Distribution Width 12.7 11.0-15.5 % Platelet Count 325 130-400 K/uL Mean Platelet Volume 9.6 7.5-10.5 fL Immature Granulocyte % (Auto) 0.6 0-1 % Neutrophils (%) (Auto) 51.2 40.0-77.0 % Lymphocytes (%) (Auto) 34.3 21.0-51.0 % Monocytes (%) (Auto) 9.3 3.0-13.0 % Eosinophils (%) (Auto) 4.1 0.0-8.0 % Basophils (%) (Auto) 0.5 0.0-5.0 % Neutrophils # (Auto) 4.3 1.8-7.7 K/uL Lymphocytes # (Auto) 2.9 1.0-4.8 K/uL Monocytes # (Auto) 0.8 0.1-1.0 K/uL Eosinophils # (Auto) 0.34 0.00-0.70 K/uL Basophils # (Auto) 0.04 0.00-0.20 K/uL Absolute Immature Granulocyte (auto 0.05 0-1 K/uL Nucleated Red Blood Cells 0.0 0.0-0.19 % Sodium Level 142 136-145 mmol/L Potassium Level 4.0 3.5-5.1 mmol/L Chloride Level 107 101-111 mmol/L Carbon Dioxide Level 30 21-32 mmol/L Blood Urea Nitrogen 13 7-18 mg/dL Creatinine 0.6 0.5-1.0 mg/dL Glomerular Filtration Rate Calc 125 >90 mL/min Random Glucose 81 70-105 mg/dL Total Calcium 8.3 L 8.5-10.1 mg/dL Magnesium Level 2.20 1.80-2.40 mg/dL Total Bilirubin 0.2 # 0.2-1.0 mg/dL Aspartate Amino Transf (AST/SGOT) 8 L 10-37 U/L Alanine Aminotransferase (ALT/SGPT) 14 12-78 U/L Alkaline Phosphatase 51 50-136 U/L Total Protein 6.1 6.0-8.3 g/dL Albumin 2.4 L 3.5-5.0 g/dL Whole Blood Glucose 85 70-110 MG/DL Vancomycin Level Trough 11.5 10.0-20.0 UG/ML Hemoglobin A1c 5.6 4.0-6.0 % Estimated Average Glucose (eAG) 114 70-126 mg/dL Lactic Acid Level 1.2 0.8-2.5 mmol/L Direct Bilirubin 0.1 0.0-0.3 mg/dL Total Creatine Kinase 29 21-232 U/L Procalcitonin < 0.05 L 0.05-0.5 ng/mL Thyroid Stimulating Hormone (TSH) 1.74 0.36-3.74 uIU/mL Free Thyroxine (T4) Direct 1.31 0.76-1.46 ng/dL Free Triiodothyronine (T3) pg/mL 2.40 2.18-3.98 pg/mL Current Medications Medications (Trade) Dose Ordered Sig/Kenzie Route PRN Reason Start Time Stop Time Status Last Admin Dose Admin Acetaminophen (TYLenol 325MG TAB) 650 mg Q4H PRN PO MILD PAIN (1-3) 06/02/25 12:00 07/02/25 11:59 Acetaminophen (TYLenol 325MG TAB) 650 mg Q6H PRN PO MILD PAIN (1-3) 06/02/25 12:00 06/02/25 11:44 DC Acetaminophen (TYLenol 325MG TAB) 650 mg Q6H PRN PO TEMPERATURE GREATER THAN 101.5 06/02/25 12:00 07/02/25 11:59 Acetaminophen/ Hydrocodone Bitart (NORco 5/325MG) 1 tab Q6H PRN PO SEVERE PAIN (7-10) 06/02/25 12:00 06/02/25 21:18 DC Acetaminophen/ Hydrocodone Bitart (NORco 5/325MG) 1 tab Q6H PRN PO SEVERE PAIN (7-10) 06/02/25 21:30 06/07/25 21:29 Al Hydroxide/Mg Hydroxide (MAALox PLUS 30ML) 30 ml Q6H PRN PO INDIGESTION 06/02/25 12:00 06/02/25 21:21 DC Al Hydroxide/Mg Hydroxide (MAALox PLUS 30ML) 30 ml Q6H PRN PO INDIGESTION 06/02/25 21:30 07/02/25 21:29 Dextrose (D50w) 50 ml AD PRN IV HYPOGLYCEMIA PROTOCOL 06/02/25 12:00 06/02/25 21:15 DC Dextrose (D50w) 50 ml AD PRN IV HYPOGLYCEMIA PROTOCOL 06/02/25 21:30 07/02/25 21:29 Diphenhydramine HCl (BENAdryl INJ) 25 mg Q6H PRN IV SEVERE ITCHING/RASH 06/02/25 12:00 07/02/25 11:59 Famotidine (Pepcid 20mg Vial) 20 mg BID IV 06/02/25 21:00 06/03/25 10:00 DC Famotidine (Pepcid 20mg Vial) 20 mg BID IV 06/03/25 10:05 07/03/25 10:04 06/04/25 08:34 20 MG Famotidine (Pepcid 20mg Vial) 20 mg BID PRN IV NAUSEA/VOMITING 06/02/25 12:00 06/02/25 11:44 DC Glucagon (Glucagon 1mg Kit) 1 mg AD PRN IM HYPOGLYCEMIA PROTOCOL 06/02/25 12:00 06/02/25 21:16 DC Glucagon (Glucagon 1mg Kit) 1 mg AD PRN IM HYPOGLYCEMIA PROTOCOL 06/02/25 21:30 07/02/25 21:29 Guaifenesin/ Dextromethorphan (RobiTUSSin DM 200/20MG 10ML) 10 ml Q4H PRN PO COUGH 06/02/25 12:00 06/02/25 21:22 DC Guaifenesin/ Dextromethorphan (RobiTUSSin DM 200/20MG 10ML) 10 ml Q4H PRN PO COUGH 06/02/25 21:30 07/02/25 21:29 Hydralazine HCl (APRESOLine 20MG INJ) 10 mg Q6H PRN IV For:SBP above 160;DBP above 90 06/02/25 12:00 06/02/25 21:22 DC Hydralazine HCl (APRESOLine 20MG INJ) 10 mg Q6H PRN IV For:SBP above 160;DBP above 90 06/02/25 21:30 07/02/25 21:29 Hydromorphone HCl (DiLAUDid 0.5MG INJ) 0.5 mg Q4H PRN IVP DRESSING CHANGE 06/03/25 19:00 06/08/25 18:59 Insulin Human Regular (humuLIN R 100 UNIT/ML 3ML) INSULIN SLIDING SCAL... ACHS SQ 06/02/25 16:30 06/02/25 21:15 DC Insulin Human Regular (humuLIN R 100 UNIT/ML 3ML) INSULIN SLIDING SCAL... ACHS SQ 06/03/25 07:30 07/03/25 07:29 Ketorolac Tromethamine (toRADol) 15 mg Q8H PRN IV MODERATE PAIN (4-6) 06/02/25 12:00 06/02/25 21:18 DC Ketorolac Tromethamine (toRADol) 15 mg Q8H PRN IV MODERATE PAIN (4-6) 06/02/25 21:30 06/07/25 21:29 06/03/25 21:35 15 MG Lactulose (Constulose 20gm/ 30ml Udcup) 20 gm BID PRN PO CONSTIPATION 06/02/25 12:00 06/02/25 21:22 DC Lactulose (Constulose 20gm/ 30ml Udcup) 20 gm BID PRN PO CONSTIPATION 06/02/25 21:30 07/02/25 21:29 Magnesium Sulfate 50 ml @ 0 mls/hr PROTOCOL PRN IV other 06/02/25 12:00 06/02/25 21:21 DC Magnesium Sulfate 50 ml @ 0 mls/hr PROTOCOL PRN IV other 06/02/25 21:30 07/02/25 21:29 Morphine Sulfate (morPHINE 2MG SYG) 1 mg Q4H PRN IVP SEVERE PAIN (7-10) 06/02/25 12:00 06/02/25 11:44 DC Nitroglycerin (Nitrostat) 0.4 mg PROTOCOL PRN SL CHEST PAIN 06/02/25 12:00 06/02/25 21:22 DC Nitroglycerin (Nitrostat) 0.4 mg PROTOCOL PRN SL CHEST PAIN 06/02/25 21:30 07/02/25 21:29 Ondansetron HCl (zoFRAN 4MG INJ) 4 mg Q6H PRN IV NAUSEA/VOMITING 06/02/25 12:00 06/02/25 21:21 DC Ondansetron HCl (zoFRAN 4MG INJ) 4 mg Q6H PRN IV NAUSEA/VOMITING 06/02/25 21:30 07/02/25 21:29 Piperacillin Sod/ Tazobactam Sod (Zosyn 3.375gm+NS 50ml) 3.375 gm Q8H IV 06/02/25 15:30 06/02/25 21:19 DC 06/02/25 17:21 3.375 GM Piperacillin Sod/ Tazobactam Sod (Zosyn 3.375gm+NS 50ml) 3.375 gm Q8H IV 06/03/25 01:00 06/13/25 00:59 06/04/25 08:34 3.375 GM Potassium Chloride 100 ml @ 100 mls/hr AD PRN IV POTASSIUM PROTOCOL 06/02/25 12:00 06/02/25 21:17 DC Potassium Chloride 100 ml @ 100 mls/hr AD PRN IV POTASSIUM PROTOCOL 06/02/25 21:30 07/02/25 21:29 Potassium Chloride (K-Dur/Klor-Con 20meq) 20 meq AD PRN PO POTASSIUM PROTOCOL 06/02/25 12:00 06/02/25 21:20 DC Potassium Chloride (K-Dur/Klor-Con 20meq) 20 meq AD PRN PO POTASSIUM PROTOCOL 06/02/25 21:30 07/02/25 21:29 Potassium Chloride (KCl 10% Elixir 20meq/15ml) 20 meq AD PRN PO POTASSIUM PROTOCOL 06/02/25 12:00 06/02/25 21:17 DC Potassium Chloride (KCl 10% Elixir 20meq/15ml) 20 meq AD PRN PO POTASSIUM PROTOCOL 06/02/25 21:30 07/02/25 21:29 Sodium Chloride 1,000 ml @ 100 mls/hr Q10H IV 06/02/25 12:00 07/02/25 11:59 06/03/25 18:59 100 MLS/HR Vancomycin HCl 250 ml @ 125 mls/hr Q8H IV 06/02/25 22:00 06/12/25 21:59 06/04/25 06:10 125 MLS/HR Vancomycin HCl 250 ml @ 125 mls/hr Q8H IV 06/02/25 22:00 06/02/25 21:18 DC Vancomycin HCl (Vancomycin Protocol) 1 each PROTOCOL PRN IV VANCOMYCIN PROTOCOL 06/02/25 12:00 06/16/25 11:59 Zolpidem Tartrate (AmbIEN) 5 mg HS PRN PO INSOMNIA 06/02/25 12:00 06/02/25 21:19 DC Zolpidem Tartrate (AmbIEN) 5 mg HS PRN PO INSOMNIA 06/02/25 21:30 07/02/25 21:29 DIAGNOSTICS / RADIOLOGY: [ ] ASSESSMENT: [ sepsis POA Rectal abscess POA s/p I and D with dr Linton 06/03/25 nabothian cyst in cervix per CT abdomen/pelvis POA Community-acquired PNA per cxray Leukocytosis POA Multifactorial anemia POA] PLAN: [ As per Infectious Disease doctor continue Zosyn and vancomycin. We are pending still final wound culture. As per surgeon patient remains afebrile and hemodynamically stable. White blood canceled almost normalized. Continue daily packing. Case management consult for home with the home health for daily packing changes. Patient is cleared to be discharged once the arrangement is completed. We anticipated discharge patient home within 24 hours once final cultures are back and IV versus p.o. antibiotics per ID we will be recommended. In the meantime we will continue to monitor patient. A.m. labs Patient admitted to medical-surgical floor under hospitalist care Surgeon consulted for perirectal abscess Normal saline at 100 mL/hour CT abdomen/pelvis showed pleural density nabothian cyst in cervix Pelvic ultrasound showed abscess left peroneal CT chest atelectasis, PNA Ultrasound transvaginal showed nabothian cysts no new abnormalities compared to the previous ultrasound Potassium magnesium protocol Hypo hyper glycemia protocol ] ATTESTATION BY PHYSICIAN I have seen and examined the patient. I reviewed the documentation, medical decision making, and treatment plan as noted by the mid-level provider above. I agree with the findings and plan of care. Caridad Waller MD, KATAR[employer]YNA B [employer] Jun 04, 2025 10:39
[2025-06-04 11:51] VITALS: BP 110/71; PULSE 50; RESP 18; TEMP 98.1
[2025-06-04 16:02] VITALS: BP 104/67; PULSE 64; RESP 18; TEMP 98.4
--- NOTE | 2025-06-04 16:37 | NUR ---
[facility] Consult: Patient assessed by wound healing team. See wound assessment. Assessment and recommendations provided to primary nurse to continue with iodoform packing. Education provided to patient r/t to wound and wound care treatment. Wound care done.
--- NOTE | 2025-06-04 17:15 | PN ---
This is a 30-year-old female status post I and D to perirectal abscess by doctor Linton postop day two Interval history: This 30-year-old female seen in her room Patient's pain controlled Wound care performed by nursing today Patient on IV fluids and IV antibiotics Physical exam General: Awake alert and oriented Heart: Regular rate and rhythm} Lungs: Clear to auscultation no distress Abdomen: [Soft, nontender, nondistended Assessment : This is a 30-year-old female status post I and D to perirectal abscess Plan: From surgical standpoint we will await for home health arrangements for wound care and packing Patient to continue with Sitz baths Continue with current pain management Once appropriate arrangements set up by case management patient is cleared from surgical standpoint for discharge Doctor Linton to be updated in patient's status Surgical case has been discussed with my supervising physician in the above plan was formulated and agreed upon We appreciate the hospitalist team for us to participate in patient's care. Greater than 45 minutes of time spent patient, reviewing chart, working on documentation Vitals/Labs Vital Signs Date Time Temp Pulse Resp B/P (MAP) Pulse Ox O2 Delivery O2 Flow Rate FiO2 06/04/25 16:02 98.4 64 18 104/67 98 Room Air 06/04/25 08:34 0 21 Laboratory Tests 06/04/25 05:12 Medications Current Medications Iohexol 75 ml STK-MED ONCE IV; Start 06/02/25 at 08:57; Stop 06/02/25 at 08:57; Status DC Acetaminophen 650 mg ONCE ONCE PO; Start 06/02/25 at 09:30; Stop 06/02/25 at 09:31; Status DC Vancomycin HCl 1 gm ONCE ONCE IV; Start 06/02/25 at 10:00; Stop 06/02/25 at 10:01; Status DC Insulin Human Regular INSULIN SLIDING SCAL... ACHS SQ; Start 06/02/25 at 16:30; Stop 06/02/25 at 21:15; Status DC Dextrose 50 ml AD PRN IV; Start 06/02/25 at 12:00; Stop 06/02/25 at 21:15; Status DC Glucagon 1 mg AD PRN IM; Start 06/02/25 at 12:00; Stop 06/02/25 at 21:16; Status DC Potassium Chloride 100 ml @ 100 mls/hr AD PRN IV; Start 06/02/25 at 12:00; Stop 06/02/25 at 21:17; Status DC Potassium Chloride 20 meq AD PRN PO; Start 06/02/25 at 12:00; Stop 06/02/25 at 21:17; Status DC Potassium Chloride 20 meq AD PRN PO; Start 06/02/25 at 12:00; Stop 06/02/25 at 21:20; Status DC Magnesium Sulfate 50 ml @ 0 mls/hr PROTOCOL PRN IV; Start 06/02/25 at 12:00; Stop 06/02/25 at 21:21; Status DC Diphenhydramine HCl 25 mg Q6H PRN IV; Start 06/02/25 at 12:00; Stop 07/02/25 at 11:59 Acetaminophen 650 mg Q6H PRN PO; Start 06/02/25 at 12:00; Stop 07/02/25 at 11:59 Acetaminophen 650 mg Q4H PRN PO; Start 06/02/25 at 12:00; Stop 07/02/25 at 11:59 Ondansetron HCl 4 mg Q6H PRN IV; Start 06/02/25 at 12:00; Stop 06/02/25 at 21:21; Status DC Zolpidem Tartrate 5 mg HS PRN PO; Start 06/02/25 at 12:00; Stop 06/02/25 at 21:19; Status DC Al Hydroxide/Mg Hydroxide 30 ml Q6H PRN PO; Start 06/02/25 at 12:00; Stop 06/02/25 at 21:21; Status DC Lactulose 20 gm BID PRN PO; Start 06/02/25 at 12:00; Stop 06/02/25 at 21:22; Status DC Nitroglycerin 0.4 mg PROTOCOL PRN SL; Start 06/02/25 at 12:00; Stop 06/02/25 at 21:22; Status DC Guaifenesin/ Dextromethorphan 10 ml Q4H PRN PO; Start 06/02/25 at 12:00; Stop 06/02/25 at 21:22; Status DC Famotidine 20 mg BID PRN IV; Start 06/02/25 at 12:00; Stop 06/02/25 at 11:44; Status DC Acetaminophen 650 mg Q6H PRN PO; Start 06/02/25 at 12:00; Stop 06/02/25 at 11:44; Status DC Ketorolac Tromethamine 15 mg Q8H PRN IV; Start 06/02/25 at 12:00; Stop 06/02/25 at 21:18; Status DC Acetaminophen/ Hydrocodone Bitart 1 tab Q6H PRN PO; Start 06/02/25 at 12:00; Stop 06/02/25 at 21:18; Status DC Morphine Sulfate 1 mg Q4H PRN IVP; Start 06/02/25 at 12:00; Stop 06/02/25 at 11:44; Status DC Vancomycin HCl 1 each PROTOCOL PRN IV; Start 06/02/25 at 12:00; Stop 06/16/25 at 11:59 Sodium Chloride 1,000 ml @ 100 mls/hr Q10H IV Last administered on 06/03/25at 18:59; Start 06/02/25 at 12:00; Stop 07/02/25 at 11:59 Hydralazine HCl 10 mg Q6H PRN IV; Start 06/02/25 at 12:00; Stop 06/02/25 at 21:22; Status DC Famotidine 20 mg BID IV; Start 06/02/25 at 21:00; Stop 06/03/25 at 10:00; Status DC Vancomycin HCl 500 ml @ 250 mls/hr ONCE ONCE IV; Start 06/02/25 at 12:00; Stop 06/02/25 at 13:59; Status DC Vancomycin HCl 250 ml @ 125 mls/hr Q8H IV; Start 06/02/25 at 22:00; Stop 06/02/25 at 21:18; Status DC Lidocaine HCl 100 mg STK-MED ONCE .ROUTE; Start 06/02/25 at 13:16; Stop 06/02/25 at 13:17; Status DC Midazolam HCl 2 mg STK-MED ONCE .ROUTE; Start 06/02/25 at 13:16; Stop 06/02/25 at 13:17; Status DC Propofol 200 mg STK-MED ONCE IV; Start 06/02/25 at 13:17; Stop 06/02/25 at 13:17; Status DC Fentanyl Citrate 100 mcg STK-MED ONCE .ROUTE; Start 06/02/25 at 13:24; Stop 06/02/25 at 13:24; Status DC Propofol 200 mg STK-MED ONCE IV; Start 06/02/25 at 13:52; Stop 06/02/25 at 13:52; Status DC Fentanyl Citrate 100 mcg STK-MED ONCE .ROUTE; Start 06/02/25 at 13:55; Stop 06/02/25 at 13:55; Status DC Glycopyrrolate 1 mg STK-MED ONCE .ROUTE; Start 06/02/25 at 14:08; Stop 06/02/25 at 14:08; Status DC Cefazolin Sodium 2 gm STK-MED ONCE IVPB Last administered on 06/02/25at 13:54; Start 06/02/25 at 13:54; Stop 06/02/25 at 14:46; Status DC Piperacillin Sod/ Tazobactam Sod 3.375 gm Q8H IV Last administered on 06/02/25at 17:21; Start 06/02/25 at 15:30; Stop 06/02/25 at 21:19; Status DC Insulin Human Regular INSULIN SLIDING SCAL... ACHS SQ; Start 06/03/25 at 07:30; Stop 07/03/25 at 07:29 Dextrose 50 ml AD PRN IV; Start 06/02/25 at 21:30; Stop 07/02/25 at 21:29 Glucagon 1 mg AD PRN IM; Start 06/02/25 at 21:30; Stop 07/02/25 at 21:29 Potassium Chloride 100 ml @ 100 mls/hr AD PRN IV; Start 06/02/25 at 21:30; Stop 07/02/25 at 21:29 Potassium Chloride 20 meq AD PRN PO; Start 06/02/25 at 21:30; Stop 07/02/25 at 21:29 Ketorolac Tromethamine 15 mg Q8H PRN IV Last administered on 06/03/25at 21:35; Start 06/02/25 at 21:30; Stop 06/07/25 at 21:29 Acetaminophen/ Hydrocodone Bitart 1 tab Q6H PRN PO; Start 06/02/25 at 21:30; Stop 06/07/25 at 21:29 Vancomycin HCl 250 ml @ 125 mls/hr Q8H IV Last administered on 06/04/25at 15:57; Start 06/02/25 at 22:00; Stop 06/12/25 at 21:59 Zolpidem Tartrate 5 mg HS PRN PO; Start 06/02/25 at 21:30; Stop 07/02/25 at 21:29 Piperacillin Sod/ Tazobactam Sod 3.375 gm Q8H IV Last administered on 06/04/25at 08:34; Start 06/03/25 at 01:00; Stop 06/13/25 at 00:59 Potassium Chloride 20 meq AD PRN PO; Start 06/02/25 at 21:30; Stop 07/02/25 at 21:29 Magnesium Sulfate 50 ml @ 0 mls/hr PROTOCOL PRN IV; Start 06/02/25 at 21:30; Stop 07/02/25 at 21:29 Ondansetron HCl 4 mg Q6H PRN IV; Start 06/02/25 at 21:30; Stop 07/02/25 at 21:29 Al Hydroxide/Mg Hydroxide 30 ml Q6H PRN PO; Start 06/02/25 at 21:30; Stop 07/02/25 at 21:29 Lactulose 20 gm BID PRN PO; Start 06/02/25 at 21:30; Stop 07/02/25 at 21:29 Nitroglycerin 0.4 mg PROTOCOL PRN SL; Start 06/02/25 at 21:30; Stop 07/02/25 at 21:29 Guaifenesin/ Dextromethorphan 10 ml Q4H PRN PO; Start 06/02/25 at 21:30; Stop 07/02/25 at 21:29 Hydralazine HCl 10 mg Q6H PRN IV; Start 06/02/25 at 21:30; Stop 07/02/25 at 21:29 Famotidine 20 mg BID IV Last administered on 06/04/25at 08:34; Start 06/03/25 at 10:05; Stop 07/03/25 at 10:04 Hydromorphone HCl 0.5 mg Q4H PRN IVP Last administered on 06/04/25at 16:16; Start 06/03/25 at 19:00; Stop 06/08/25 at 18:59 CARRINGTON MOLINA Jr. Jun 04, 2025 17:15
[2025-06-04 20:00] VITALS: BP 117/55; PULSE 58; RESP 17; TEMP 98
[2025-06-05] VITALS (8 sets, daily range): BP systolic 99–131; BP diastolic 59–81; PULSE 50–68; RESP 16–20; TEMP 97.6–98.2; O2SAT 97–99
[2025-06-05 03:49] LABS: IMMATURE GRANULOCYTE ABSOLUTE 0.06 K/uL (0-1); NUCLEATED RED BLOOD CELLS 0.0 % (0.0-0.19); PLATELET COUNT (AUTO) 350 K/uL (130-400); RED BLOOD CELL COUNT(AUTO) 3.45 MIL/uL (4.00-5.50); RED CELL DISTRIBUTION WIDTH 12.7 % (11.0-15.5); WHITE BLOOD COUNT (AUTO) 9.4 K/uL (4.8-10.8)
[2025-06-05 04:00] LABS: ASPARTATE AMINOTRANSFERASE 14.0 U/L (10-37); CREATININE 0.8 mg/dL (0.5-1.0); GLOMERULAR FILTR. RATE CALC 103.0 mL/min (>90); GLUCOSE,RANDOM 96.0 mg/dL (70-105); SODIUM SERUM 141.0 mmol/L (136-145); TOTAL PROTEIN, SERUM 6.2 g/dL (6.0-8.3); UREA NITROGEN, BLOOD 14.0 mg/dL (7-18)
--- NOTE | 2025-06-05 10:59 | PN ---
[facility] PROGRESS NOTE Date of Service: Jun 05, 2025 Time of Service: 10:53 SUBJECTIVE: [ 06/02 30-year-old female history of diabetes who presents to emergency room with complaints of right perineal abscess. Patient states that she was initially seen by her primary care doctor 4-5 days ago. At that time they prescribed Ciprodex. However because the pain was getting worse and there was some minimal drainage they switched her medications over to doxycycline and got lab work. In the interim she was also follow up by them and received two total injections of Rocephin. Since then the blood work came back elevated to the point where her PCP called the patient at 3:00 a.m. in the morning advised the patient to go to the emergency room for evaluation. Patient states that she has never had symptoms like this before. It is progressively worsening and enlarging to the point where she is unable to sit or feel comfortable. Most recent vital signs 100.2 temperature pulse 71 respiration 20 blood pressure 123/71 patient is on room air satting 99%. WBC 25.9 hemoglobin 11.2 hematocrit 34 platelets 385 sodium 139 potassium 3.9 CO2 28 BUN 11 creatinine 0.7 GFR 121 bilirubin 0.1 AST 11 ALT 21 UA negative. Toxicology negative. CT abdomen/pelvis showed no acute process noted. Left lower lung pleural-based density posteriorly measuring approximately 1.[address] of the chest. There is also suggestion of nabothian cyst in the cervix ultrasound recommended. Pelvic ultrasound transvaginal showed 4.4 x3 x 4 cm abscess in left peroneal likely representing a perirectal abscess. Pelvic ultrasound normal. CT chest pending. Patient admitted under hospitalist care for further evaluation/recommendations. A.m. labs 06/03 patient was seen by nurse practitioner and physician during rounding in room 119. Patient is s/p I and D with a 06/02/2025. Ultrasound transvaginal was we ordered. Patient continues to be on vancomycin. WBC 11.8. H&H stable. We are pending ID recommendations as of now. Wound consultation still pending . Urinalysis negative. Wound culture pending. We will continue to monitor patient in the meantime. A.m. labs.] 06/04 patient was seen by [facility] and physician during rounding. As per Infectious Disease doctor continue Zosyn and vancomycin. We are pending still final wound culture. As per surgeon patient remains afebrile and hemodynamically stable. White blood canceled almost normalized. Continue daily packing. Case management consult for home with the home health for daily packing changes. Patient is cleared to be discharged once the arrangement is completed. We anticipated discharge patient home within 24 hours once final cultures are back and IV versus p.o. antibiotics per ID we will be recommended. In the meantime we will continue to monitor patient. A.m. labs 06/05 evaluated this morning with Dr. Resendiz, patient is in no acute distress sitting in the room. We discussed discharge, at this time still pending home health, patient unable to do her own wound care due to positioning. She is currently on IV Zosyn and vancomycin. So far wound culture is showing Gram-positive rods. She is afebrile. REVIEW OF SYSTEMS CONSTITUTIONAL: Denies fevers, chills, or night sweats. No unintentional weight loss reported. NEUROLOGICAL: Denies headache, amaurosis fugax, motor weakness, sensory deficit, vertigo/spinning sensation, gait abnormalities, or tremors. ENT: No hearing loss, otalgia, otorrhea, rhinitis, rhinorrhea, hoarseness, or sore throat. CARDIOVASCULAR: Denies any exertional angina, dyspnea on exertion, orthopnea, paroxysmal nocturnal dyspnea, palpitations, life-threatening arrhythmias, claudication. PULMONARY: Denies any shortness of breath, cough, phlegm/sputum, hemoptysis, pleuritic chest pain. SLEEP: Denies morning headaches, daytime somnolence or napping. Denies difficulty falling asleep, staying asleep, waking from sleep. Denies knowledge of snoring. GASTROINTESTINAL: Denies any type of dysphagia to either liquids or solids. Denies nausea, vomiting, pyrosis, early satiety, abdominal pain, diarrhea, constipation, or changes in stool consistency or caliber. Denies coffee-ground emesis, hematemesis, hematochezia, or melanotic stools. GENITOURINARY: Denies frequency, urgency, nocturia, hematuria or incontinence (Storage/Irritative symptoms.) Low urinary stream, straining to void, urinary intermittency or hesitancy, splitting of the voiding stream, terminal dribbling. Perirectal s/p I and D pain ENDOCRINOLOGIC: Denies polyuria, polydipsia, polyphagia or heat/cold intolerances. HEMATOLOGIC: Denies thrombophilia/previous clots, or coagulopathy/bleeding disorders. ONCOLOGIC: Denies personal history of malignancy. DERMATOLOGIC: Denies rashes or pruritus. Perirectal wound s/p I and D with the packing PSYCHIATRIC: Denies any suicidal or homicidal ideation. Denies hallucinations. PHYSICAL EXAM GENERAL APPEARANCE: The patient is awake, alert, and oriented, in no acute cardiopulmonary distress. NEUROLOGICAL: Cranial nerves II-XII grossly intact. Motor is 5/5 in bilateral upper and lower extremities proximal to distal. No sensory deficits. HEENT: Face is symmetric. Pupils are equal and reactive. Extraocular movements are intact. NECK: Supple. No JVD. No thyromegaly. No submental, submandibular, pre- /postauricular, occipital or supraclavicular lymphadenopathy. CHEST: Normal chest expansion. No Telemetry. LUNGS: Absence of any rales, rhonchi or any wheezing. CARDIOVASCULAR: Regular. S1 and S2 normal. No appreciable rubs, murmurs or gallops. ABDOMEN: Soft, nontender, and nondistended. There is no rebound, voluntary guarding, or rigidity. : Deferred. No Negron. EXTREMITIES: Non-edematous and not cyanotic. No clubbing. Good capillary refill. SKIN: No skin breakdown. S/p I and D perirectal area Vital Signs (last 8hr) Date Time Temp Pulse Resp B/P (MAP) Pulse Ox O2 Delivery O2 Flow Rate FiO2 06/05/25 07:59 99 Room Air* 0 21 06/05/25 07:39 97.9 52 16 124/77 99 Room Air 0.0 06/05/25 04:00 97.7 50 17 113/73 98 Room Air LABS: Laboratory: Test 06/05/25 03:27 06/04/25 20:59 06/04/25 05:12 06/04/25 05:11 Range/Units White Blood Count 9.4 4.8-10.8 K/uL Red Blood Count 3.45 L 4.00-5.50 MIL/uL Hemoglobin 9.9 L 12.0-16.0 g/dL Hematocrit 30.6 L 36-48 % Mean Corpuscular Volume 88.7 79-99 fL Mean Corpuscular Hemoglobin 28.7 27.0-33.0 pg Mean Corpuscular Hemoglobin Concent 32.4 32.0-36.0 g/dL Red Cell Distribution Width 12.7 11.0-15.5 % Platelet Count 350 130-400 K/uL Mean Platelet Volume 9.2 7.5-10.5 fL Immature Granulocyte % (Auto) 0.6 0-1 % Neutrophils (%) (Auto) 53.1 40.0-77.0 % Lymphocytes (%) (Auto) 33.8 21.0-51.0 % Monocytes (%) (Auto) 8.1 3.0-13.0 % Eosinophils (%) (Auto) 3.9 0.0-8.0 % Basophils (%) (Auto) 0.5 0.0-5.0 % Neutrophils # (Auto) 5.0 1.8-7.7 K/uL Lymphocytes # (Auto) 3.2 1.0-4.8 K/uL Monocytes # (Auto) 0.8 0.1-1.0 K/uL Eosinophils # (Auto) 0.37 0.00-0.70 K/uL Basophils # (Auto) 0.05 0.00-0.20 K/uL Absolute Immature Granulocyte (auto 0.06 0-1 K/uL Nucleated Red Blood Cells 0.0 0.0-0.19 % Sodium Level 141 136-145 mmol/L Potassium Level 4.0 3.5-5.1 mmol/L Chloride Level 106 101-111 mmol/L Carbon Dioxide Level 29 21-32 mmol/L Blood Urea Nitrogen 14 7-18 mg/dL Creatinine 0.8 0.5-1.0 mg/dL Glomerular Filtration Rate Calc 103 >90 mL/min Random Glucose 96 70-105 mg/dL Total Calcium 8.4 L 8.5-10.1 mg/dL Total Bilirubin 0.2 0.2-1.0 mg/dL Aspartate Amino Transf (AST/SGOT) 14 10-37 U/L Alanine Aminotransferase (ALT/SGPT) 14 12-78 U/L Alkaline Phosphatase 48 L 50-136 U/L Total Protein 6.2 6.0-8.3 g/dL Albumin 2.5 L 3.5-5.0 g/dL Vancomycin Level Trough 19.1 # 10.0-20.0 UG/ML Magnesium Level 2.20 1.80-2.40 mg/dL Whole Blood Glucose 85 70-110 MG/DL Current Medications Medications (Trade) Dose Ordered Sig/Kenzie Route PRN Reason Start Time Stop Time Status Last Admin Dose Admin Acetaminophen (TYLenol 325MG TAB) 650 mg Q4H PRN PO MILD PAIN (1-3) 06/02/25 12:00 07/02/25 11:59 Acetaminophen (TYLenol 325MG TAB) 650 mg Q6H PRN PO MILD PAIN (1-3) 06/02/25 12:00 06/02/25 11:44 DC Acetaminophen (TYLenol 325MG TAB) 650 mg Q6H PRN PO TEMPERATURE GREATER THAN 101.5 06/02/25 12:00 07/02/25 11:59 Acetaminophen/ Hydrocodone Bitart (NORco 5/325MG) 1 tab Q6H PRN PO SEVERE PAIN (7-10) 06/02/25 12:00 06/02/25 21:18 DC Acetaminophen/ Hydrocodone Bitart (NORco 5/325MG) 1 tab Q6H PRN PO SEVERE PAIN (7-10) 06/02/25 21:30 06/07/25 21:29 Al Hydroxide/Mg Hydroxide (MAALox PLUS 30ML) 30 ml Q6H PRN PO INDIGESTION 06/02/25 12:00 06/02/25 21:21 DC Al Hydroxide/Mg Hydroxide (MAALox PLUS 30ML) 30 ml Q6H PRN PO INDIGESTION 06/02/25 21:30 07/02/25 21:29 Dextrose (D50w) 50 ml AD PRN IV HYPOGLYCEMIA PROTOCOL 06/02/25 12:00 06/02/25 21:15 DC Dextrose (D50w) 50 ml AD PRN IV HYPOGLYCEMIA PROTOCOL 06/02/25 21:30 07/02/25 21:29 Diphenhydramine HCl (BENAdryl INJ) 25 mg Q6H PRN IV SEVERE ITCHING/RASH 06/02/25 12:00 07/02/25 11:59 Famotidine (Pepcid 20mg Vial) 20 mg BID IV 06/02/25 21:00 06/03/25 10:00 DC Famotidine (Pepcid 20mg Vial) 20 mg BID IV 06/03/25 10:05 07/03/25 10:04 06/05/25 07:59 20 MG Famotidine (Pepcid 20mg Vial) 20 mg BID PRN IV NAUSEA/VOMITING 06/02/25 12:00 06/02/25 11:44 DC Glucagon (Glucagon 1mg Kit) 1 mg AD PRN IM HYPOGLYCEMIA PROTOCOL 06/02/25 12:00 06/02/25 21:16 DC Glucagon (Glucagon 1mg Kit) 1 mg AD PRN IM HYPOGLYCEMIA PROTOCOL 06/02/25 21:30 07/02/25 21:29 Guaifenesin/ Dextromethorphan (RobiTUSSin DM 200/20MG 10ML) 10 ml Q4H PRN PO COUGH 06/02/25 12:00 06/02/25 21:22 DC Guaifenesin/ Dextromethorphan (RobiTUSSin DM 200/20MG 10ML) 10 ml Q4H PRN PO COUGH 06/02/25 21:30 07/02/25 21:29 Hydralazine HCl (APRESOLine 20MG INJ) 10 mg Q6H PRN IV For:SBP above 160;DBP above 90 06/02/25 12:00 06/02/25 21:22 DC Hydralazine HCl (APRESOLine 20MG INJ) 10 mg Q6H PRN IV For:SBP above 160;DBP above 90 06/02/25 21:30 07/02/25 21:29 Hydromorphone HCl (DiLAUDid 0.5MG INJ) 0.5 mg Q4H PRN IVP DRESSING CHANGE 06/03/25 19:00 06/08/25 18:59 06/04/25 16:16 0.5 MG Insulin Human Regular (humuLIN R 100 UNIT/ML 3ML) INSULIN SLIDING SCAL... ACHS SQ 06/02/25 16:30 06/02/25 21:15 DC Insulin Human Regular (humuLIN R 100 UNIT/ML 3ML) INSULIN SLIDING SCAL... ACHS SQ 06/03/25 07:30 07/03/25 07:29 Ketorolac Tromethamine (toRADol) 15 mg Q8H PRN IV MODERATE PAIN (4-6) 06/02/25 12:00 06/02/25 21:18 DC Ketorolac Tromethamine (toRADol) 15 mg Q8H PRN IV MODERATE PAIN (4-6) 06/02/25 21:30 06/07/25 21:29 06/03/25 21:35 15 MG Lactulose (Constulose 20gm/ 30ml Udcup) 20 gm BID PRN PO CONSTIPATION 06/02/25 12:00 06/02/25 21:22 DC Lactulose (Constulose 20gm/ 30ml Udcup) 20 gm BID PRN PO CONSTIPATION 06/02/25 21:30 07/02/25 21:29 Magnesium Sulfate 50 ml @ 0 mls/hr PROTOCOL PRN IV other 06/02/25 12:00 06/02/25 21:21 DC Magnesium Sulfate 50 ml @ 0 mls/hr PROTOCOL PRN IV other 06/02/25 21:30 07/02/25 21:29 Morphine Sulfate (morPHINE 2MG SYG) 1 mg Q4H PRN IVP SEVERE PAIN (7-10) 06/02/25 12:00 06/02/25 11:44 DC Nitroglycerin (Nitrostat) 0.4 mg PROTOCOL PRN SL CHEST PAIN 06/02/25 12:00 06/02/25 21:22 DC Nitroglycerin (Nitrostat) 0.4 mg PROTOCOL PRN SL CHEST PAIN 06/02/25 21:30 07/02/25 21:29 Ondansetron HCl (zoFRAN 4MG INJ) 4 mg Q6H PRN IV NAUSEA/VOMITING 06/02/25 12:00 06/02/25 21:21 DC Ondansetron HCl (zoFRAN 4MG INJ) 4 mg Q6H PRN IV NAUSEA/VOMITING 06/02/25 21:30 07/02/25 21:29 Piperacillin Sod/ Tazobactam Sod (Zosyn 3.375gm+NS 50ml) 3.375 gm Q8H IV 06/02/25 15:30 06/02/25 21:19 DC 06/02/25 17:21 3.375 GM Piperacillin Sod/ Tazobactam Sod (Zosyn 3.375gm+NS 50ml) 3.375 gm Q8H IV 06/03/25 01:00 06/13/25 00:59 06/05/25 07:59 3.375 GM Potassium Chloride 100 ml @ 100 mls/hr AD PRN IV POTASSIUM PROTOCOL 06/02/25 12:00 06/02/25 21:17 DC Potassium Chloride 100 ml @ 100 mls/hr AD PRN IV POTASSIUM PROTOCOL 06/02/25 21:30 07/02/25 21:29 Potassium Chloride (K-Dur/Klor-Con 20meq) 20 meq AD PRN PO POTASSIUM PROTOCOL 06/02/25 12:00 06/02/25 21:20 DC Potassium Chloride (K-Dur/Klor-Con 20meq) 20 meq AD PRN PO POTASSIUM PROTOCOL 06/02/25 21:30 07/02/25 21:29 Potassium Chloride (KCl 10% Elixir 20meq/15ml) 20 meq AD PRN PO POTASSIUM PROTOCOL 06/02/25 12:00 06/02/25 21:17 DC Potassium Chloride (KCl 10% Elixir 20meq/15ml) 20 meq AD PRN PO POTASSIUM PROTOCOL 06/02/25 21:30 07/02/25 21:29 Sodium Chloride 1,000 ml @ 100 mls/hr Q10H IV 06/02/25 12:00 07/02/25 11:59 06/03/25 18:59 100 MLS/HR Vancomycin HCl 250 ml @ 125 mls/hr Q8H IV 06/02/25 22:00 06/12/25 21:59 06/05/25 06:34 125 MLS/HR Vancomycin HCl 250 ml @ 125 mls/hr Q8H IV 06/02/25 22:00 06/02/25 21:18 DC Vancomycin HCl (Vancomycin Protocol) 1 each PROTOCOL PRN IV VANCOMYCIN PROTOCOL 06/02/25 12:00 06/16/25 11:59 Zolpidem Tartrate (AmbIEN) 5 mg HS PRN PO INSOMNIA 06/02/25 12:00 06/02/25 21:19 DC Zolpidem Tartrate (AmbIEN) 5 mg HS PRN PO INSOMNIA 06/02/25 21:30 07/02/25 21:29 DIAGNOSTICS / RADIOLOGY: [ ] ASSESSMENT: [ sepsis POA Rectal abscess POA s/p I and D with dr Linton 06/03/25 nabothian cyst in cervix per CT abdomen/pelvis POA Community-acquired PNA per cxray Leukocytosis POA Multifactorial anemia POA] PLAN: [Per Infectious Disease recommendations, continue Zosyn and vancomycin. Awaiting final wound culture results. Postop day three, continue to follow general surgeon recommendation Continue daily wound packing. Case management consult placed for home health services to assist with daily packing changes. Patient is cleared for discharge once home health arrangements are finalized. Anticipate discharge once home health/wound care is secured, Anticipate antibiotics continuation though Antibiotic regimen (IV vs. PO) to be determined per Infectious Disease recommendations. Continue to monitor patient in the interim. Obtain morning labs. Case was seen and evaluated with Dr. Resendiz, above plan was formulated ATTESTATION BY PHYSICIAN I have seen and examined the patient. I reviewed the documentation, medical decision making, and treatment plan as noted by the mid-level provider above. I agree with the findings and plan of care. Caridad Waller MD, [facility] Jun 05, 2025 10:59
--- NOTE | 2025-06-05 11:26 | NUR ---
DC PLAN SPOKE TO BILL GARCIA FOR DR Lentz SAID PENDING FINAL CULTURES BEFORE MAKING A DECISION ON IV ABX. Addendum: 06/05/25 at 1127 by MIKE ANDRADE RN CM Amended: Links added.
--- NOTE | 2025-06-05 13:00 | PN ---
INFECTIOUS DISEASE PROGRESS NOTE Date of Service: Jun 05, 2025 SUBJECTIVE: This is a 30-year-old female patient who was seen and examined at bedside in room 119. Patient is awake, alert and oriented x3. Patient is status post I&D of the left perirectal abscess on 06/02/2025. Patient is still having pain and requiring premedication prior to the dressing change. No growth reported yet on left perirectal abscess. We will continue on vancomycin and Zosyn for one more day and plan to discharge tomorrow on oral antibiotics. PHYSICAL EXAM EYES: Anicteric. Pupils equal and reactive. HENT: No oral thrush seen, moist Oral mucosa. NECK: Supple, no JVD or thyromegaly. LUNGS: Good air entry. No rales, no rhonchi. CARDIOVASCULAR: S1, S2 regular. No murmur heard. ABDOMEN: Soft, non tender, bowel sounds present, no organomegaly. CENTRAL NERVOUS SYSTEM: Awake, alert, oriented x 3. SKIN: No rashes, no swelling. LYMPHATICS: No peripheral lymphadenopathy MUSCULOSKELETAL: No joint swelling, erythema or tenderness. EXTREMITIES: No cyanosis or clubbing BACK: No deformity, no pressure ulcer. Left perirectal abscess, s/p I/D. GENITOURINARY: No dysuria or hematuria. Vital Sign (Last 12 Hours) 06/05/25 06/05/25 06/05/25 06/05/25 04:00 07:39 07:59 12:31 Temp 97.7 97.9 98.2 Pulse 50 52 57 Resp 17 16 16 B/P (MAP) 113/73 124/77 131/81 Pulse Ox 98 99 99 96 O2 Delivery Room Air Room Air Room Air* Room Air O2 Flow Rate 0.0 0 0.0 FiO2 21 Intake & Output (last 24hrs) 06/04/25 06/04/25 06/05/25 15:00 23:00 07:00 Intake Total 90.0 ml 1000.0 ml 350.0 ml Balance 90.0 ml 1000.0 ml 350.0 ml LABS: Laboratory: Test 06/05/25 03:27 06/04/25 20:59 06/04/25 05:12 06/04/25 05:11 Range/Units White Blood Count 9.4 4.8-10.8 K/uL Red Blood Count 3.45 L 4.00-5.50 MIL/uL Hemoglobin 9.9 L 12.0-16.0 g/dL Hematocrit 30.6 L 36-48 % Mean Corpuscular Volume 88.7 79-99 fL Mean Corpuscular Hemoglobin 28.7 27.0-33.0 pg Mean Corpuscular Hemoglobin Concent 32.4 32.0-36.0 g/dL Red Cell Distribution Width 12.7 11.0-15.5 % Platelet Count 350 130-400 K/uL Mean Platelet Volume 9.2 7.5-10.5 fL Immature Granulocyte % (Auto) 0.6 0-1 % Neutrophils (%) (Auto) 53.1 40.0-77.0 % Lymphocytes (%) (Auto) 33.8 21.0-51.0 % Monocytes (%) (Auto) 8.1 3.0-13.0 % Eosinophils (%) (Auto) 3.9 0.0-8.0 % Basophils (%) (Auto) 0.5 0.0-5.0 % Neutrophils # (Auto) 5.0 1.8-7.7 K/uL Lymphocytes # (Auto) 3.2 1.0-4.8 K/uL Monocytes # (Auto) 0.8 0.1-1.0 K/uL Eosinophils # (Auto) 0.37 0.00-0.70 K/uL Basophils # (Auto) 0.05 0.00-0.20 K/uL Absolute Immature Granulocyte (auto 0.06 0-1 K/uL Nucleated Red Blood Cells 0.0 0.0-0.19 % Sodium Level 141 136-145 mmol/L Potassium Level 4.0 3.5-5.1 mmol/L Chloride Level 106 101-111 mmol/L Carbon Dioxide Level 29 21-32 mmol/L Blood Urea Nitrogen 14 7-18 mg/dL Creatinine 0.8 0.5-1.0 mg/dL Glomerular Filtration Rate Calc 103 >90 mL/min Random Glucose 96 70-105 mg/dL Total Calcium 8.4 L 8.5-10.1 mg/dL Total Bilirubin 0.2 0.2-1.0 mg/dL Aspartate Amino Transf (AST/SGOT) 14 10-37 U/L Alanine Aminotransferase (ALT/SGPT) 14 12-78 U/L Alkaline Phosphatase 48 L 50-136 U/L Total Protein 6.2 6.0-8.3 g/dL Albumin 2.5 L 3.5-5.0 g/dL Vancomycin Level Trough 19.1 # 10.0-20.0 UG/ML Magnesium Level 2.20 1.80-2.40 mg/dL Whole Blood Glucose 85 70-110 MG/DL ASSESSMENT: Left perirectal abscess, status post I&D on 06/02/2025. Failed outpatient antibiotic treatment. Leukocytosis, resolving. PLAN: Continue Zosyn IV. Continue vancomycin per pharmacy protocol. Continue pain management. Continue GI prophylaxis. We will follow up on the culture results. This case was reviewed and discussed with my supervising physician Dr. Jacobs and the above assessment and plan was formulated and agreed upon. ATTESTATION BY PHYSICIAN I have seen and examined the patient. I reviewed the documentation, medical decision making, and treatment plan as noted by the mid-level provider above. I agree with the findings and plan of care. MIRTA JACOBS MD, [facility] Jun 05, 2025 13:00
--- NOTE | 2025-06-05 14:22 | PN ---
GENERAL SURGERY PROGRESS NOTE Date/Time Patient Seen: [06/05/2025 10:30 AM ] Problem List: [ ] Interval History: [ 22-year-old female, postop day 3., I and D left perirectal abscess by Dr. Linton Patient states she is doing better, only complaining of pain when wound care nurses changing packing Patient has been tolerating diet, ambulating and having bowel movements WBCs 9.4 H&H 9.9 and 30.6 ] Current Medications Medications (Trade) Dose Ordered Sig/Kenzie Route Start Time Stop Time Status Last Admin Dose Admin Famotidine (Pepcid 20mg Vial) 20 mg BID IV 06/02/25 21:00 06/03/25 10:00 DC Famotidine (Pepcid 20mg Vial) 20 mg BID IV 06/03/25 10:05 07/03/25 10:04 06/05/25 07:59 20 MG Insulin Human Regular (humuLIN R 100 UNIT/ML 3ML) INSULIN SLIDING SCAL... ACHS SQ 06/02/25 16:30 06/02/25 21:15 DC Insulin Human Regular (humuLIN R 100 UNIT/ML 3ML) INSULIN SLIDING SCAL... ACHS SQ 06/03/25 07:30 07/03/25 07:29 Piperacillin Sod/ Tazobactam Sod (Zosyn 3.375gm+NS 50ml) 3.375 gm Q8H IV 06/02/25 15:30 06/02/25 21:19 DC 06/02/25 17:21 3.375 GM Piperacillin Sod/ Tazobactam Sod (Zosyn 3.375gm+NS 50ml) 3.375 gm Q8H IV 06/03/25 01:00 06/13/25 00:59 06/05/25 07:59 3.375 GM Sodium Chloride 1,000 ml @ 100 mls/hr Q10H IV 06/02/25 12:00 07/02/25 11:59 06/05/25 14:10 100 MLS/HR Vancomycin HCl 250 ml @ 125 mls/hr Q8H IV 06/02/25 22:00 06/12/25 21:59 06/05/25 14:06 125 MLS/HR Vancomycin HCl 250 ml @ 125 mls/hr Q8H IV 06/02/25 22:00 06/02/25 21:18 DC Physical Examination: GENERAL: [No acute distress, female, comfortably resting in bed] HEAD: [Normocephalic.] EYES: [Normal conjunctiva.] ENT: [Hearing grossly intact.] NECK: [Supple.] LUNGS: [Clear breath sounds bilaterally] HEART: [Normal rate and rhythm.] VASC: [Peripheral pulses +2 bilaterally.] ABD: [Bowel sounds normal, soft, nontender, no masses, no organomegaly. No audible bruits.] : [Not examined] EXT: [No edema.] SKIN: [Left perirectal wound packed with iodoform, surrounding tissue without any erythema, edema or induration.] NEURO: [Awake, alert, and oriented x3. No focal sensory or strength deficits noted.] Vital Signs (last 8hr) Date Time Temp Pulse Resp B/P (MAP) Pulse Ox O2 Delivery O2 Flow Rate FiO2 06/05/25 12:31 98.2 57 16 131/81 96 Room Air 0.0 06/05/25 07:59 99 Room Air* 0 21 06/05/25 07:39 97.9 52 16 124/77 99 Room Air 0.0 Laboratory: [ ] Hematology Labs: Test 06/05/25 03:27 Range/Units White Blood Count 9.4 4.8-10.8 K/uL Red Blood Count 3.45 L 4.00-5.50 MIL/uL Hemoglobin 9.9 L 12.0-16.0 g/dL Hematocrit 30.6 L 36-48 % Mean Corpuscular Volume 88.7 79-99 fL Mean Corpuscular Hemoglobin 28.7 27.0-33.0 pg Mean Corpuscular Hemoglobin Concent 32.4 32.0-36.0 g/dL Red Cell Distribution Width 12.7 11.0-15.5 % Platelet Count 350 130-400 K/uL Mean Platelet Volume 9.2 7.5-10.5 fL Immature Granulocyte % (Auto) 0.6 0-1 % Neutrophils (%) (Auto) 53.1 40.0-77.0 % Lymphocytes (%) (Auto) 33.8 21.0-51.0 % Monocytes (%) (Auto) 8.1 3.0-13.0 % Eosinophils (%) (Auto) 3.9 0.0-8.0 % Basophils (%) (Auto) 0.5 0.0-5.0 % Neutrophils # (Auto) 5.0 1.8-7.7 K/uL Lymphocytes # (Auto) 3.2 1.0-4.8 K/uL Monocytes # (Auto) 0.8 0.1-1.0 K/uL Eosinophils # (Auto) 0.37 0.00-0.70 K/uL Basophils # (Auto) 0.05 0.00-0.20 K/uL Absolute Immature Granulocyte (auto 0.06 0-1 K/uL Nucleated Red Blood Cells 0.0 0.0-0.19 % Chemistry Labs: Test 06/05/25 03:27 06/04/25 05:12 06/04/25 05:11 Range/Units Sodium Level 141 136-145 mmol/L Potassium Level 4.0 3.5-5.1 mmol/L Chloride Level 106 101-111 mmol/L Carbon Dioxide Level 29 21-32 mmol/L Blood Urea Nitrogen 14 7-18 mg/dL Creatinine 0.8 0.5-1.0 mg/dL Glomerular Filtration Rate Calc 103 >90 mL/min Random Glucose 96 70-105 mg/dL Total Calcium 8.4 L 8.5-10.1 mg/dL Total Bilirubin 0.2 0.2-1.0 mg/dL Aspartate Amino Transf (AST/SGOT) 14 10-37 U/L Alanine Aminotransferase (ALT/SGPT) 14 12-78 U/L Alkaline Phosphatase 48 L 50-136 U/L Total Protein 6.2 6.0-8.3 g/dL Albumin 2.5 L 3.5-5.0 g/dL Magnesium Level 2.20 1.80-2.40 mg/dL Whole Blood Glucose 85 70-110 MG/DL Diagnostics / Radiology: [Copy/Paste Echos/Imaging Report here] Impression and Plan: [ 30-year-old female, postop day 3., I and D left perirectal abscess Pending home health arrangements for wound care with iodoform packing daily Continue with current IV antibiotics From surgical standpoint, No surgical intervention at this time Patient may be discharged home when cleared by hospitalist and ID specialist As per nurse, plan is for patient to be discharged home tomorrow with oral antibiotics as recommended by Infectious Disease specialist and went hold health arrangements has been made Patient will follow-up at the office in [address] Linton for wound management Dr. Linton updated on patient's status Surgical case has been discussed with my supervising physician Plan of care was formulated and agreed upon We appreciate hospitalist team for allowing us to participate in this patient's care Greater than 45 minutes spent examining patient, reviewing chart and working on documentation ] ATTESTATION BY PHYSICIAN I have seen and examined the patient. I reviewed the documentation, medical decision making, and treatment plan as noted by the mid-level provider above. I agree with the findings and plan of care. MD FILIPE Braun [facility] Jun 05, 2025 14:22
--- NOTE | 2025-06-05 17:00 | CONS ---
CONSULTATION NOTE Date of Service: Jun 05, 2025 Reason for Consultation: [Left Perirectal abscess ] Requesting Physician: [Dr. Askew ] HISTORY OF PRESENT ILLNESS: The patient is evaluated at bedside in room 119 for initial wound care evaluation. The patient is a 30-year-old female with no significant medical history, presented to the hospital with perirectal swelling, pain and fever.The patient's symptoms started 3 days prior to presentation. T-max was 100.2, WBC was 25,000. Imaging of the abdomen and pelvis done showed left perirectal abscess. On 06/02/25 patient had incision and drainage of perirectal abscess by Dr Ferris. REVIEW OF SYSTEMS CONSTITUTIONAL: Denies fever, chills, or fatigue. HEAD/FACE: No signs of trauma. EENT: Denies eye pain, blurred vision, double vision, or light sensitivity. RESPIRATORY: Denies shortness of breath, cough, wheezing CARDIOVASCULAR: Denies chest pain, palpitation, syncope GASTROINTESTINAL/ABDOMINAL: Denies abdominal pain, constipation, diarrhea, nausea or vomiting GENITOURINARY: Denies dysuria or hematuria. MUSCULOSKELETAL: Denies joint pain, tenderness, or trauma. INTEGUMENTARY: Denies rash or itchiness NEUROLOGICAL/PSYCH: Denies anxiety, depression, heat or cold intolerance. PAST MEDICAL HISTORY: None. PAST SURGICAL HISTORY: None. ALLERGIES: No known drug allergies. SOCIAL HISTORY: No alcohol, tobacco or illicit drug use. FAMILY HISTORY: Noncontributory. Coded Allergies: No Known Drug Allergies (Unverified Allergy, Unknown, 06/02/25) PHYSICAL EXAM EYES: Anicteric. Pupils equal and reactive. HENT: No oral thrush seen, moist Oral mucosa NECK: Supple, no JVD or thyromegaly. LUNGS: Good air entry. No rales, no rhonchi. CARDIOVASCULAR: S1, S2 regular. No murmur heard. ABDOMEN: Soft, non tender, bowel sounds present, no organomegaly CENTRAL NERVOUS SYSTEM: Awake, alert, oriented x 3. No focal deficits. SKIN: No rashes, no swelling. LYMPHATICS: No peripheral lymphadenopathy MUSCULOSKELETAL: No joint swelling, erythema or tenderness. EXTREMITIES: No cyanosis or clubbing BACK: No deformity, no pressure ulcer. GENITOURINARY: No dysuria or hematuria Vital Sign (Last 24 Hours) 06/05/25 06/05/25 07:59 16:55 Temp 97.5 Pulse 68 Resp 18 B/P (MAP) 124/77 Pulse Ox 97 O2 Delivery Room Air O2 Flow Rate 0.0 FiO2 21 Intake & Output (last 24hrs) 06/04/25 06/04/25 06/05/25 15:00 23:00 07:00 Intake Total 90.0 ml 1000.0 ml 350.0 ml Balance 90.0 ml 1000.0 ml 350.0 ml LABS: Laboratory: Test 06/05/25 03:27 06/04/25 20:59 06/04/25 05:12 06/04/25 05:11 Range/Units White Blood Count 9.4 4.8-10.8 K/uL Red Blood Count 3.45 L 4.00-5.50 MIL/uL Hemoglobin 9.9 L 12.0-16.0 g/dL Hematocrit 30.6 L 36-48 % Mean Corpuscular Volume 88.7 79-99 fL Mean Corpuscular Hemoglobin 28.7 27.0-33.0 pg Mean Corpuscular Hemoglobin Concent 32.4 32.0-36.0 g/dL Red Cell Distribution Width 12.7 11.0-15.5 % Platelet Count 350 130-400 K/uL Mean Platelet Volume 9.2 7.5-10.5 fL Immature Granulocyte % (Auto) 0.6 0-1 % Neutrophils (%) (Auto) 53.1 40.0-77.0 % Lymphocytes (%) (Auto) 33.8 21.0-51.0 % Monocytes (%) (Auto) 8.1 3.0-13.0 % Eosinophils (%) (Auto) 3.9 0.0-8.0 % Basophils (%) (Auto) 0.5 0.0-5.0 % Neutrophils # (Auto) 5.0 1.8-7.7 K/uL Lymphocytes # (Auto) 3.2 1.0-4.8 K/uL Monocytes # (Auto) 0.8 0.1-1.0 K/uL Eosinophils # (Auto) 0.37 0.00-0.70 K/uL Basophils # (Auto) 0.05 0.00-0.20 K/uL Absolute Immature Granulocyte (auto 0.06 0-1 K/uL Nucleated Red Blood Cells 0.0 0.0-0.19 % Sodium Level 141 136-145 mmol/L Potassium Level 4.0 3.5-5.1 mmol/L Chloride Level 106 101-111 mmol/L Carbon Dioxide Level 29 21-32 mmol/L Blood Urea Nitrogen 14 7-18 mg/dL Creatinine 0.8 0.5-1.0 mg/dL Glomerular Filtration Rate Calc 103 >90 mL/min Random Glucose 96 70-105 mg/dL Total Calcium 8.4 L 8.5-10.1 mg/dL Total Bilirubin 0.2 0.2-1.0 mg/dL Aspartate Amino Transf (AST/SGOT) 14 10-37 U/L Alanine Aminotransferase (ALT/SGPT) 14 12-78 U/L Alkaline Phosphatase 48 L 50-136 U/L Total Protein 6.2 6.0-8.3 g/dL Albumin 2.5 L 3.5-5.0 g/dL Vancomycin Level Trough 19.1 # 10.0-20.0 UG/ML Magnesium Level 2.20 1.80-2.40 mg/dL Whole Blood Glucose 85 70-110 MG/DL DIAGNOSTICS / RADIOLOGY: [ ] PROBLEM LIST : Medical Problems: Perirectal abscess Unspecified open wound to perineum PLAN: Wound care to perineal wound- Cleanse wound with normal saline, pack with 1/4 inch iodoform packing, cover with 4x4 and secure with tape daily and prn Keep wounds clean and dry Offloading/reposition q 2 hours Continue IV antibiotics per ID Comorbidities per primary care team Further Management per hospital course. Thank You for the consult and allowing us to participate in the care of this patient. COURTNEY SIERRA Jun 05, 2025 17:00
[2025-06-06 04:31] VITALS: BP 117/78; PULSE 58; RESP 16; TEMP 98.1
[2025-06-06 07:25] VITALS: BP_SYST 120; BP_DIAS 73; BP_DIAS 80; PULSE 55; RESP 18; TEMP 97.8
[2025-06-06 08:00] VITALS: O2SAT 97
[2025-06-06 11:30] VITALS: BP 120/78; PULSE 59; RESP 18; TEMP 97.8
--- NOTE | 2025-06-06 11:44 | PN ---
[facility] PROGRESS NOTE Date of Service: Jun 06, 2025 Time of Service: 11:36 SUBJECTIVE: [ 06/02 30-year-old female history of diabetes who presents to emergency room with complaints of right perineal abscess. Patient states that she was initially seen by her primary care doctor 4-5 days ago. At that time they prescribed Ciprodex. However because the pain was getting worse and there was some minimal drainage they switched her medications over to doxycycline and got lab work. In the interim she was also follow up by them and received two total injections of Rocephin. Since then the blood work came back elevated to the point where her PCP called the patient at 3:00 a.m. in the morning advised the patient to go to the emergency room for evaluation. Patient states that she has never had symptoms like this before. It is progressively worsening and enlarging to the point where she is unable to sit or feel comfortable. Most recent vital signs 100.2 temperature pulse 71 respiration 20 blood pressure 123/71 patient is on room air satting 99%. WBC 25.9 hemoglobin 11.2 hematocrit 34 platelets 385 sodium 139 potassium 3.9 CO2 28 BUN 11 creatinine 0.7 GFR 121 bilirubin 0.1 AST 11 ALT 21 UA negative. Toxicology negative. CT abdomen/pelvis showed no acute process noted. Left lower lung pleural-based density posteriorly measuring approximately 1.[address] of the chest. There is also suggestion of nabothian cyst in the cervix ultrasound recommended. Pelvic ultrasound transvaginal showed 4.4 x3 x 4 cm abscess in left peroneal likely representing a perirectal abscess. Pelvic ultrasound normal. CT chest pending. Patient admitted under hospitalist care for further evaluation/recommendations. A.m. labs 06/03 patient was seen by nurse practitioner and physician during rounding in room 119. Patient is s/p I and D with a 06/02/2025. Ultrasound transvaginal was we ordered. Patient continues to be on vancomycin. WBC 11.8. H&H stable. We are pending ID recommendations as of now. Wound consultation still pending . Urinalysis negative. Wound culture pending. We will continue to monitor patient in the meantime. A.m. labs.] 06/04 patient was seen by AUTO DRIVER and physician during rounding. As per Infectious Disease doctor continue Zosyn and vancomycin. We are pending still final wound culture. As per surgeon patient remains afebrile and hemodynamically stable. White blood canceled almost normalized. Continue daily packing. Case management consult for home with the home health for daily packing changes. Patient is cleared to be discharged once the arrangement is completed. We anticipated discharge patient home within 24 hours once final cultures are back and IV versus p.o. antibiotics per ID we will be recommended. In the meantime we will continue to monitor patient. A.m. labs 06/05 evaluated this morning with Dr. Resendiz, patient is in no acute distress sitting in the room. We discussed discharge, at this time still pending home health, patient unable to do her own wound care due to positioning. She is currently on IV Zosyn and vancomycin. So far wound culture is showing Gram-positive rods. She is afebrile. 06/06/25 POD #4, patient was seen in her room, AOX4, no pain reported. She c/w IV antbx- We will continue to follow up with counseling case manager regarding discharge planning. Encouraging patient for her mom to learn how to do wound care. REVIEW OF SYSTEMS CONSTITUTIONAL: Denies fevers, chills, or night sweats. No unintentional weight loss reported. NEUROLOGICAL: Denies headache, amaurosis fugax, motor weakness, sensory deficit, vertigo/spinning sensation, gait abnormalities, or tremors. ENT: No hearing loss, otalgia, otorrhea, rhinitis, rhinorrhea, hoarseness, or sore throat. CARDIOVASCULAR: Denies any exertional angina, dyspnea on exertion, orthopnea, paroxysmal nocturnal dyspnea, palpitations, life-threatening arrhythmias, claudication. PULMONARY: Denies any shortness of breath, cough, phlegm/sputum, hemoptysis, pleuritic chest pain. SLEEP: Denies morning headaches, daytime somnolence or napping. Denies difficulty falling asleep, staying asleep, waking from sleep. Denies knowledge of snoring. GASTROINTESTINAL: Denies any type of dysphagia to either liquids or solids. Denies nausea, vomiting, pyrosis, early satiety, abdominal pain, diarrhea, constipation, or changes in stool consistency or caliber. Denies coffee-ground emesis, hematemesis, hematochezia, or melanotic stools. GENITOURINARY: Denies frequency, urgency, nocturia, hematuria or incontinence (Storage/Irritative symptoms.) Low urinary stream, straining to void, urinary intermittency or hesitancy, splitting of the voiding stream, terminal dribbling. Perirectal s/p I and D pain ENDOCRINOLOGIC: Denies polyuria, polydipsia, polyphagia or heat/cold intolerances. HEMATOLOGIC: Denies thrombophilia/previous clots, or coagulopathy/bleeding disorders. ONCOLOGIC: Denies personal history of malignancy. DERMATOLOGIC: Denies rashes or pruritus. Perirectal wound s/p I and D with the packing PSYCHIATRIC: Denies any suicidal or homicidal ideation. Denies hallucinations. PHYSICAL EXAM GENERAL APPEARANCE: The patient is awake, alert, and oriented, in no acute cardiopulmonary distress. NEUROLOGICAL: Cranial nerves II-XII grossly intact. Motor is 5/5 in bilateral upper and lower extremities proximal to distal. No sensory deficits. HEENT: Face is symmetric. Pupils are equal and reactive. Extraocular movements are intact. NECK: Supple. No JVD. No thyromegaly. No submental, submandibular, pre- /postauricular, occipital or supraclavicular lymphadenopathy. CHEST: Normal chest expansion. No Telemetry. LUNGS: Absence of any rales, rhonchi or any wheezing. CARDIOVASCULAR: Regular. S1 and S2 normal. No appreciable rubs, murmurs or gallops. ABDOMEN: Soft, nontender, and nondistended. There is no rebound, voluntary guarding, or rigidity. : Deferred. No Negron. EXTREMITIES: Non-edematous and not cyanotic. No clubbing. Good capillary refill. SKIN: No skin breakdown. S/p I and D perirectal area Vital Signs (last 8hr) Date Time Temp Pulse Resp B/P (MAP) Pulse Ox O2 Delivery O2 Flow Rate FiO2 06/06/25 07:25 97.9 55 18 120/73 97 Room Air 120/80 06/06/25 04:31 98.1 58 16 117/78 97 Room Air 0.0 21 LABS: Laboratory: Test 06/05/25 03:27 06/04/25 20:59 Range/Units White Blood Count 9.4 4.8-10.8 K/uL Red Blood Count 3.45 L 4.00-5.50 MIL/uL Hemoglobin 9.9 L 12.0-16.0 g/dL Hematocrit 30.6 L 36-48 % Mean Corpuscular Volume 88.7 79-99 fL Mean Corpuscular Hemoglobin 28.7 27.0-33.0 pg Mean Corpuscular Hemoglobin Concent 32.4 32.0-36.0 g/dL Red Cell Distribution Width 12.7 11.0-15.5 % Platelet Count 350 130-400 K/uL Mean Platelet Volume 9.2 7.5-10.5 fL Immature Granulocyte % (Auto) 0.6 0-1 % Neutrophils (%) (Auto) 53.1 40.0-77.0 % Lymphocytes (%) (Auto) 33.8 21.0-51.0 % Monocytes (%) (Auto) 8.1 3.0-13.0 % Eosinophils (%) (Auto) 3.9 0.0-8.0 % Basophils (%) (Auto) 0.5 0.0-5.0 % Neutrophils # (Auto) 5.0 1.8-7.7 K/uL Lymphocytes # (Auto) 3.2 1.0-4.8 K/uL Monocytes # (Auto) 0.8 0.1-1.0 K/uL Eosinophils # (Auto) 0.37 0.00-0.70 K/uL Basophils # (Auto) 0.05 0.00-0.20 K/uL Absolute Immature Granulocyte (auto 0.06 0-1 K/uL Nucleated Red Blood Cells 0.0 0.0-0.19 % Sodium Level 141 136-145 mmol/L Potassium Level 4.0 3.5-5.1 mmol/L Chloride Level 106 101-111 mmol/L Carbon Dioxide Level 29 21-32 mmol/L Blood Urea Nitrogen 14 7-18 mg/dL Creatinine 0.8 0.5-1.0 mg/dL Glomerular Filtration Rate Calc 103 >90 mL/min Random Glucose 96 70-105 mg/dL Total Calcium 8.4 L 8.5-10.1 mg/dL Total Bilirubin 0.2 0.2-1.0 mg/dL Aspartate Amino Transf (AST/SGOT) 14 10-37 U/L Alanine Aminotransferase (ALT/SGPT) 14 12-78 U/L Alkaline Phosphatase 48 L 50-136 U/L Total Protein 6.2 6.0-8.3 g/dL Albumin 2.5 L 3.5-5.0 g/dL Vancomycin Level Trough 19.1 # 10.0-20.0 UG/ML Current Medications Medications (Trade) Dose Ordered Sig/Kenzie Route PRN Reason Start Time Stop Time Status Last Admin Dose Admin Acetaminophen (TYLenol 325MG TAB) 650 mg Q4H PRN PO MILD PAIN (1-3) 06/02/25 12:00 07/02/25 11:59 Acetaminophen (TYLenol 325MG TAB) 650 mg Q6H PRN PO MILD PAIN (1-3) 06/02/25 12:00 06/02/25 11:44 DC Acetaminophen (TYLenol 325MG TAB) 650 mg Q6H PRN PO TEMPERATURE GREATER THAN 101.5 06/02/25 12:00 07/02/25 11:59 Acetaminophen/ Hydrocodone Bitart (NORco 5/325MG) 1 tab Q6H PRN PO SEVERE PAIN (7-10) 06/02/25 12:00 06/02/25 21:18 DC Acetaminophen/ Hydrocodone Bitart (NORco 5/325MG) 1 tab Q6H PRN PO SEVERE PAIN (7-10) 06/02/25 21:30 06/07/25 21:29 Al Hydroxide/Mg Hydroxide (MAALox PLUS 30ML) 30 ml Q6H PRN PO INDIGESTION 06/02/25 12:00 06/02/25 21:21 DC Al Hydroxide/Mg Hydroxide (MAALox PLUS 30ML) 30 ml Q6H PRN PO INDIGESTION 06/02/25 21:30 07/02/25 21:29 Dextrose (D50w) 50 ml AD PRN IV HYPOGLYCEMIA PROTOCOL 06/02/25 12:00 06/02/25 21:15 DC Dextrose (D50w) 50 ml AD PRN IV HYPOGLYCEMIA PROTOCOL 06/02/25 21:30 07/02/25 21:29 Diphenhydramine HCl (BENAdryl INJ) 25 mg Q6H PRN IV SEVERE ITCHING/RASH 06/02/25 12:00 07/02/25 11:59 Famotidine (Pepcid 20mg Vial) 20 mg BID IV 06/02/25 21:00 06/03/25 10:00 DC Famotidine (Pepcid 20mg Vial) 20 mg BID IV 06/03/25 10:05 07/03/25 10:04 10/8/25 08:18 20 MG Famotidine (Pepcid 20mg Vial) 20 mg BID PRN IV NAUSEA/VOMITING 06/02/25 12:00 06/02/25 11:44 DC Glucagon (Glucagon 1mg Kit) 1 mg AD PRN IM HYPOGLYCEMIA PROTOCOL 06/02/25 12:00 06/02/25 21:16 DC Glucagon (Glucagon 1mg Kit) 1 mg AD PRN IM HYPOGLYCEMIA PROTOCOL 06/02/25 21:30 07/02/25 21:29 Guaifenesin/ Dextromethorphan (RobiTUSSin DM 200/20MG 10ML) 10 ml Q4H PRN PO COUGH 06/02/25 12:00 06/02/25 21:22 DC Guaifenesin/ Dextromethorphan (RobiTUSSin DM 200/20MG 10ML) 10 ml Q4H PRN PO COUGH 06/02/25 21:30 07/02/25 21:29 Hydralazine HCl (APRESOLine 20MG INJ) 10 mg Q6H PRN IV For:SBP above 160;DBP above 90 06/02/25 12:00 06/02/25 21:22 DC Hydralazine HCl (APRESOLine 20MG INJ) 10 mg Q6H PRN IV For:SBP above 160;DBP above 90 06/02/25 21:30 07/02/25 21:29 Hydromorphone HCl (DiLAUDid 0.5MG INJ) 0.5 mg Q4H PRN IVP DRESSING CHANGE 06/03/25 19:00 06/08/25 18:59 06/05/25 15:00 0.5 MG Insulin Human Regular (humuLIN R 100 UNIT/ML 3ML) INSULIN SLIDING SCAL... ACHS SQ 06/02/25 16:30 06/02/25 21:15 DC Insulin Human Regular (humuLIN R 100 UNIT/ML 3ML) INSULIN SLIDING SCAL... ACHS SQ 06/03/25 07:30 07/03/25 07:29 Ketorolac Tromethamine (toRADol) 15 mg Q8H PRN IV MODERATE PAIN (4-6) 06/02/25 12:00 06/02/25 21:18 DC Ketorolac Tromethamine (toRADol) 15 mg Q8H PRN IV MODERATE PAIN (4-6) 06/02/25 21:30 06/07/25 21:29 06/03/25 21:35 15 MG Lactulose (Constulose 20gm/ 30ml Udcup) 20 gm BID PRN PO CONSTIPATION 06/02/25 12:00 06/02/25 21:22 DC Lactulose (Constulose 20gm/ 30ml Udcup) 20 gm BID PRN PO CONSTIPATION 06/02/25 21:30 07/02/25 21:29 Magnesium Sulfate 50 ml @ 0 mls/hr PROTOCOL PRN IV other 06/02/25 12:00 06/02/25 21:21 DC Magnesium Sulfate 50 ml @ 0 mls/hr PROTOCOL PRN IV other 06/02/25 21:30 07/02/25 21:29 Morphine Sulfate (morPHINE 2MG SYG) 1 mg Q4H PRN IVP SEVERE PAIN (7-10) 06/02/25 12:00 06/02/25 11:44 DC Nitroglycerin (Nitrostat) 0.4 mg PROTOCOL PRN SL CHEST PAIN 06/02/25 12:00 06/02/25 21:22 DC Nitroglycerin (Nitrostat) 0.4 mg PROTOCOL PRN SL CHEST PAIN 06/02/25 21:30 07/02/25 21:29 Ondansetron HCl (zoFRAN 4MG INJ) 4 mg Q6H PRN IV NAUSEA/VOMITING 06/02/25 12:00 06/02/25 21:21 DC Ondansetron HCl (zoFRAN 4MG INJ) 4 mg Q6H PRN IV NAUSEA/VOMITING 06/02/25 21:30 07/02/25 21:29 Piperacillin Sod/ Tazobactam Sod (Zosyn 3.375gm+NS 50ml) 3.375 gm Q8H IV 06/02/25 15:30 06/02/25 21:19 DC 06/02/25 17:21 3.375 GM Piperacillin Sod/ Tazobactam Sod (Zosyn 3.375gm+NS 50ml) 3.375 gm Q8H IV 06/03/25 01:00 06/13/25 00:59 06/06/25 08:18 3.375 GM Potassium Chloride 100 ml @ 100 mls/hr AD PRN IV POTASSIUM PROTOCOL 06/02/25 12:00 06/02/25 21:17 DC Potassium Chloride 100 ml @ 100 mls/hr AD PRN IV POTASSIUM PROTOCOL 06/02/25 21:30 07/02/25 21:29 Potassium Chloride (K-Dur/Klor-Con 20meq) 20 meq AD PRN PO POTASSIUM PROTOCOL 06/02/25 12:00 06/02/25 21:20 DC Potassium Chloride (K-Dur/Klor-Con 20meq) 20 meq AD PRN PO POTASSIUM PROTOCOL 06/02/25 21:30 07/02/25 21:29 Potassium Chloride (KCl 10% Elixir 20meq/15ml) 20 meq AD PRN PO POTASSIUM PROTOCOL 06/02/25 12:00 06/02/25 21:17 DC Potassium Chloride (KCl 10% Elixir 20meq/15ml) 20 meq AD PRN PO POTASSIUM PROTOCOL 06/02/25 21:30 07/02/25 21:29 Sodium Chloride 1,000 ml @ 100 mls/hr Q10H IV 06/02/25 12:00 07/02/25 11:59 06/05/25 19:45 100 MLS/HR Vancomycin HCl 250 ml @ 125 mls/hr Q8H IV 06/02/25 22:00 06/12/25 21:59 06/06/25 06:36 125 MLS/HR Vancomycin HCl 250 ml @ 125 mls/hr Q8H IV 06/02/25 22:00 06/02/25 21:18 DC Vancomycin HCl (Vancomycin Protocol) 1 each PROTOCOL PRN IV VANCOMYCIN PROTOCOL 06/02/25 12:00 06/16/25 11:59 Zolpidem Tartrate (AmbIEN) 5 mg HS PRN PO INSOMNIA 06/02/25 12:00 06/02/25 21:19 DC Zolpidem Tartrate (AmbIEN) 5 mg HS PRN PO INSOMNIA 06/02/25 21:30 07/02/25 21:29 DIAGNOSTICS / RADIOLOGY: [ ] ASSESSMENT: [ sepsis POA Rectal abscess POA s/p I and D with dr Linton 06/03/25 nabothian cyst in cervix per CT abdomen/pelvis POA Community-acquired PNA per cxray Leukocytosis POA Multifactorial anemia POA] PLAN: [Per Infectious Disease recommendations, continue Zosyn and vancomycin. Awaiting final wound culture results. Postop day 4, continue to follow general surgeon recommendation Continue daily wound packing. Case management consult placed for home health services to assist with daily packing changes. Patient is cleared for discharge once home health arrangements are finalized. Anticipate discharge once home health/wound care is secured, Anticipate antibiotics continuation though Antibiotic regimen (IV vs. PO) to be determined per Infectious Disease recommendations. Continue to monitor patient in the interim. Obtain morning labs. Case was seen and evaluated with Dr. Resendiz, above plan was formulated ATTESTATION BY PHYSICIAN I have seen and examined the patient. I reviewed the documentation, medical decision making, and treatment plan as noted by the mid-level provider above. I agree with the findings and plan of care. Caridad Waller MD, [facility] Jun 06, 2025 11:44
--- NOTE | 2025-06-06 14:03 | PN ---
INFECTIOUS DISEASE PROGRESS NOTE Date of Service: Jun 06, 2025 SUBJECTIVE: This is a 30-year-old female patient who is status post I&D of the left perirectal abscess on 06/02/2025. The wound culture came back positive for Bacteroides fragilis. Patient is afebrile, temperature is 97.9. Continues on vancomycin and Zosyn. From Infectious Disease standpoint patient is cleared for discharge on Augmentin p.o. b.i.d. for 7 days when ready to discharge. PHYSICAL EXAM EYES: Anicteric. Pupils equal and reactive. HENT: No oral thrush seen, moist Oral mucosa. NECK: Supple, no JVD or thyromegaly. LUNGS: Good air entry. No rales, no rhonchi. CARDIOVASCULAR: S1, S2 regular. No murmur heard. ABDOMEN: Soft, non tender, bowel sounds present, no organomegaly. CENTRAL NERVOUS SYSTEM: Awake, alert, oriented x 3. SKIN: No rashes, no swelling. LYMPHATICS: No peripheral lymphadenopathy MUSCULOSKELETAL: No joint swelling, erythema or tenderness. EXTREMITIES: No cyanosis or clubbing BACK: No deformity, no pressure ulcer. Left perirectal abscess, s/p I/D. GENITOURINARY: No dysuria or hematuria. Vital Sign (Last 12 Hours) 06/06/25 06/06/25 06/06/25 04:31 07: 11:30 Temp 98.1 97.9 97.9 Pulse 58 55 59 Resp 16 18 18 B/P (MAP) 117/78 120/73 120/78 120/80 Pulse Ox 97 97 98 O2 Delivery Room Air Room Air Room Air O2 Flow Rate 0.0 FiO2 21 Intake & Output (last 24hrs) 06/05/25 06/05/25 06/06/25 15:00 23:00 07:00 Intake Total 550.0 ml 1350.0 ml Output Total 200 ml Balance 550.0 ml 1150.0 ml LABS: Laboratory: Test 06/05/25 03:27 06/04/25 20:59 Range/Units White Blood Count 9.4 4.8-10.8 K/uL Red Blood Count 3.45 L 4.00-5.50 MIL/uL Hemoglobin 9.9 L 12.0-16.0 g/dL Hematocrit 30.6 L 36-48 % Mean Corpuscular Volume 88.7 79-99 fL Mean Corpuscular Hemoglobin 28.7 27.0-33.0 pg Mean Corpuscular Hemoglobin Concent 32.4 32.0-36.0 g/dL Red Cell Distribution Width 12.7 11.0-15.5 % Platelet Count 350 130-400 K/uL Mean Platelet Volume 9.2 7.5-10.5 fL Immature Granulocyte % (Auto) 0.6 0-1 % Neutrophils (%) (Auto) 53.1 40.0-77.0 % Lymphocytes (%) (Auto) 33.8 21.0-51.0 % Monocytes (%) (Auto) 8.1 3.0-13.0 % Eosinophils (%) (Auto) 3.9 0.0-8.0 % Basophils (%) (Auto) 0.5 0.0-5.0 % Neutrophils # (Auto) 5.0 1.8-7.7 K/uL Lymphocytes # (Auto) 3.2 1.0-4.8 K/uL Monocytes # (Auto) 0.8 0.1-1.0 K/uL Eosinophils # (Auto) 0.37 0.00-0.70 K/uL Basophils # (Auto) 0.05 0.00-0.20 K/uL Absolute Immature Granulocyte (auto 0.06 0-1 K/uL Nucleated Red Blood Cells 0.0 0.0-0.19 % Sodium Level 141 136-145 mmol/L Potassium Level 4.0 3.5-5.1 mmol/L Chloride Level 106 101-111 mmol/L Carbon Dioxide Level 29 21-32 mmol/L Blood Urea Nitrogen 14 7-18 mg/dL Creatinine 0.8 0.5-1.0 mg/dL Glomerular Filtration Rate Calc 103 >90 mL/min Random Glucose 96 70-105 mg/dL Total Calcium 8.4 L 8.5-10.1 mg/dL Total Bilirubin 0.2 0.2-1.0 mg/dL Aspartate Amino Transf (AST/SGOT) 14 10-37 U/L Alanine Aminotransferase (ALT/SGPT) 14 12-78 U/L Alkaline Phosphatase 48 L 50-136 U/L Total Protein 6.2 6.0-8.3 g/dL Albumin 2.5 L 3.5-5.0 g/dL Vancomycin Level Trough 19.1 # 10.0-20.0 UG/ML ASSESSMENT: Left perirectal abscess, s/p I&D on 06/02/2025. Left Perirectal wound with Bacteroides fragilis infection. Failed outpatient antibiotic treatment. Leukocytosis, resolving. PLAN: Continue Zosyn IV. Continue vancomycin per pharmacy protocol. Continue pain management. Continue GI prophylaxis. From Infectious Disease standpoint patient is cleared for discharge on Augmentin p.o. b.i.d. for 7 days when ready to discharge. Prescription was written. This case was reviewed and discussed with my supervising physician Dr. Jacobs and the above assessment and plan was formulated and agreed upon. ATTESTATION BY PHYSICIAN I have seen and examined the patient. I reviewed the documentation, medical decision making, and treatment plan as noted by the mid-level provider above. I agree with the findings and plan of care. MIRTA JACOBS MD, [facility] Jun 06, 2025 14:03
--- NOTE | 2025-06-06 15:21 | NUR ---
DC PLAN DELAY TO SET UP HOME HEALTH NEEDED TO SEE IF WOULD NEED IV ABX. DR Lentz SAID PO ABX IN NOTE. SPOKE TO PATIENT EXPLAINED DC PLAN AND POSSIBLE HURDLES WITH INSURANCE. [facility] DEDUCTIBLE AND PCP NEEDING TO GIVE ORDER BEFORE CAN SEE SPECIALIST. CM SPOKE TO JEY FROM [facility] SAID PATIENT WOULD GO TO [facility] NOT AT [facility]. CALLED [phone] [facility] SAID TO FAX CLINICALS TO [phone] APPOINTMENT FOR WEDNESDAY 3PM BUT THEY CAN NOT SET UP HOME HEALTH UNTIL THEY SEE PATIENT. TRIED TO CALL [phone] [facility] IS DR BLANTON ON INSURANCE CARD. OFFICE ONLY OPENED LOGISTICS MANAGER HRS. Wed 8- TTH2-6. TRIED TO CALL [facility] OFFICE SAID DR BLANTON DOES NOT GO TO THEIR OFFICE BUT [facility] DOES GO THERE. SAID TO FAX OVER INFO [phone]. TO SEE IF MD WOULD GIVE ORDER FOR HOME HEALTH SAID NO PREFERENCE ALSO CM SENT TO [facility] TO SEE IF THEY CAN SEE IF THEY ARE IN NETWORK AND IF PATIENT HAS A DEDUCTIBLE. NELDA ALSO GAVE AN UPDATE TO NURSE AND TO PATIENT. Addendum: 06/06/25 at 1550 by MIKE ANDRADE RN CM Amended: Links added.
[2025-06-06 16:46] VITALS: BP 121/74; PULSE 75; RESP 18; TEMP 98
[2025-06-06 20:00] VITALS: BP 114/65; PULSE 64; RESP 18; TEMP 97.5; O2SAT 98
[2025-06-07] VITALS: BP 98/48; PULSE 61; RESP 20; TEMP 97.5
[2025-06-07 03:55] LABS: NUCLEATED RED BLOOD CELLS 0.0 % (0.0-0.19); PLATELET COUNT (AUTO) 399.0 K/uL (130-400); RED BLOOD CELL COUNT(AUTO) 3.58 MIL/uL (4.00-5.50); RED CELL DISTRIBUTION WIDTH 12.2 % (11.0-15.5); WHITE BLOOD COUNT (AUTO) 11.7 K/uL (4.8-10.8)
[2025-06-07 04:00] VITALS: BP 96/49; PULSE 58; RESP 18; TEMP 97.6
[2025-06-07 04:05] LABS: CREATININE 0.8 mg/dL (0.5-1.0); GLOMERULAR FILTR. RATE CALC 103.0 mL/min (>90); GLUCOSE,RANDOM 93.0 mg/dL (70-105); SODIUM SERUM 142.0 mmol/L (136-145); UREA NITROGEN, BLOOD 13.0 mg/dL (7-18)
[2025-06-07] MEDS: PoTASSium chloRIDE 20MEQ ER 20 MEQ ERTAB PO PRN (05:29)
[2025-06-07 07:09] VITALS: BP 104/66; PULSE 61; RESP 16; TEMP 97.7
[2025-06-07 08:00] VITALS: O2SAT 96
[2025-06-07 11:10] VITALS: BP 128/76; PULSE 71; RESP 18; TEMP 97.5
--- NOTE | 2025-06-07 11:17 | PN ---
INFECTIOUS DISEASE PROGRESS NOTE Date of Service: Jun 07, 2025 SUBJECTIVE: Patient is awake, alert and oriented x3. Patient is s/p I&D of the left perirectal abscess on 06/02/2025. She is sitting up on the bedside chair and stated that the pain is much better. The WBC is 11.7 this morning but remains afebrile, temperature is 97.7. [facility] and being discharged today. Prescription was written for Augmentin p.o. b.i.d. for 7 days for when ready to discharge. PHYSICAL EXAM EYES: Anicteric. Pupils equal and reactive. HENT: No oral thrush seen, moist Oral mucosa. NECK: Supple, no JVD or thyromegaly. LUNGS: Good air entry. No rales, no rhonchi. CARDIOVASCULAR: S1, S2 regular. No murmur heard. ABDOMEN: Soft, non tender, bowel sounds present, no organomegaly. CENTRAL NERVOUS SYSTEM: Awake, alert, oriented x 3. SKIN: No rashes, no swelling. LYMPHATICS: No peripheral lymphadenopathy MUSCULOSKELETAL: No joint swelling, erythema or tenderness. EXTREMITIES: No cyanosis or clubbing BACK: No deformity, no pressure ulcer. Left perirectal abscess, s/p I/D. GENITOURINARY: No dysuria or hematuria. Vital Sign (Last 12 Hours) 06/07/25 06/07/25 06/07/25 00:00 04:00 07:09 Temp 97.5 97.5 97.7 Pulse 61 58 61 Resp 20 18 16 B/P (MAP) 98/48 96/49 104/66 Pulse Ox 97 98 98 O2 Delivery Room Air Room Air Room Air O2 Flow Rate 0.0 0.0 Intake & Output (last 24hrs) 06/06/25 06/06/25 06/07/25 15:00 23:00 07:00 Intake Total 1250.0 ml Balance 1250.0 ml LABS: Laboratory: Test 06/07/25 03:32 Range/Units White Blood Count 11.7 H 4.8-10.8 K/uL Red Blood Count 3.58 L 4.00-5.50 MIL/uL Hemoglobin 10.4 L 12.0-16.0 g/dL Hematocrit 31.0 L 36-48 % Mean Corpuscular Volume 86.6 79-99 fL Mean Corpuscular Hemoglobin 29.1 27.0-33.0 pg Mean Corpuscular Hemoglobin Concent 33.5 32.0-36.0 g/dL Red Cell Distribution Width 12.2 11.0-15.5 % Platelet Count 399 130-400 K/uL Mean Platelet Volume 9.3 7.5-10.5 fL Nucleated Red Blood Cells 0.0 0.0-0.19 % Sodium Level 142 136-145 mmol/L Potassium Level 3.7 3.5-5.1 mmol/L Chloride Level 104 101-111 mmol/L Carbon Dioxide Level 29 21-32 mmol/L Blood Urea Nitrogen 13 7-18 mg/dL Creatinine 0.8 0.5-1.0 mg/dL Glomerular Filtration Rate Calc 103 >90 mL/min Random Glucose 93 70-105 mg/dL Total Calcium 8.5 8.5-10.1 mg/dL ASSESSMENT: Left perirectal abscess, s/p I&D on 06/02/2025. Left Perirectal wound with Bacteroides fragilis infection. Failed outpatient antibiotic treatment. Leukocytosis. PLAN: [facility] with [facility] and being discharged today. Prescription was written for Augmentin p.o. b.i.d. for 7 days when ready to discharge. This case was reviewed and discussed with my supervising physician Dr. Jacobs and the above assessment and plan was formulated and agreed upon. ATTESTATION BY PHYSICIAN I have seen and examined the patient. I reviewed the documentation, medical decision making, and treatment plan as noted by the mid-level provider above. I agree with the findings and plan of care. MIRTA JACOBS MD, [facility]IRTA L [facility] Jun 07, 2025 11:17
[2025-06-07] MEDS: HYDROcodone/APAP 5/325 1 TAB TABLET PO PRN (14:01)
--- NOTE | 2025-06-07 15:16 | NUR ---
[facility] Follow-up: Patient re-assessed by wound healing team, Wound improving. Assessment and recommendations provided to primary nurse Education provided. Addendum: 06/07/25 at 1614 by AUNG BOLTON RN RN/ Amended: Links added.
--- NOTE | 2025-06-07 15:56 | PN ---
PROGRESS NOTE Date of Service: Jun 07, 2025 Time of Service: 15:55 SUBJECTIVE: Patient is evaluated at bedside in room 119 for wound care follow up. Patient is awake, alert and oriented x3. Patient is s/p I&D of the left perirectal abscess on 06/02/2025. She is sitting up in bed stated that the pain is much better. The WBC is 11.7 this morning but remains afebrile, temperature is 97.7. Patient has been approved to [facility] for wound care and being discharged today. Prescription was written for Augmentin p.o. b.i.d. for 7 days for when ready to discharge by ID. REVIEW OF SYSTEMS CONSTITUTIONAL: Denies fever, chills, or fatigue. HEAD/FACE: No signs of trauma. EENT: Denies eye pain, blurred vision, double vision, or light sensitivity. RESPIRATORY: Denies shortness of breath, cough, wheezing CARDIOVASCULAR: Denies chest pain, palpitation, syncope GASTROINTESTINAL/ABDOMINAL: Denies abdominal pain, constipation, diarrhea, nausea or vomiting GENITOURINARY: Denies dysuria or hematuria. MUSCULOSKELETAL: Denies joint pain, tenderness, or trauma. INTEGUMENTARY: Denies rash or itchiness NEUROLOGICAL/PSYCH: Denies anxiety, depression, heat or cold intolerance. PHYSICAL EXAM EYES: Anicteric. Pupils equal and reactive. HENT: No oral thrush seen, moist Oral mucosa NECK: Supple, no JVD or thyromegaly. LUNGS: Good air entry. No rales, no rhonchi. CARDIOVASCULAR: S1, S2 regular. No murmur heard. ABDOMEN: Soft, non tender, bowel sounds present, no organomegaly CENTRAL NERVOUS SYSTEM: Awake, alert, oriented x 3. No focal deficits. SKIN: wound to left perimeum region noted with 100% granulation, minimal serous drainage noted. No periwound erythema noted. LYMPHATICS: No peripheral lymphadenopathy MUSCULOSKELETAL: No joint swelling, erythema or tenderness. EXTREMITIES: No cyanosis or clubbing BACK: No deformity GENITOURINARY: No dysuria or hematuria Vital Signs (last 8hr) Date Time Temp Pulse Resp B/P (MAP) Pulse Ox O2 Delivery O2 Flow Rate FiO2 06/07/25 11:10 97.5 71 18 128/76 100 Room Air 06/07/25 08:00 96 Room Air* 0 21 LABS: Laboratory: Test 06/07/25 03:32 Range/Units White Blood Count 11.7 H 4.8-10.8 K/uL Red Blood Count 3.58 L 4.00-5.50 MIL/uL Hemoglobin 10.4 L 12.0-16.0 g/dL Hematocrit 31.0 L 36-48 % Mean Corpuscular Volume 86.6 79-99 fL Mean Corpuscular Hemoglobin 29.1 27.0-33.0 pg Mean Corpuscular Hemoglobin Concent 33.5 32.0-36.0 g/dL Red Cell Distribution Width 12.2 11.0-15.5 % Platelet Count 399 130-400 K/uL Mean Platelet Volume 9.3 7.5-10.5 fL Nucleated Red Blood Cells 0.0 0.0-0.19 % Sodium Level 142 136-145 mmol/L Potassium Level 3.7 3.5-5.1 mmol/L Chloride Level 104 101-111 mmol/L Carbon Dioxide Level 29 21-32 mmol/L Blood Urea Nitrogen 13 7-18 mg/dL Creatinine 0.8 0.5-1.0 mg/dL Glomerular Filtration Rate Calc 103 >90 mL/min Random Glucose 93 70-105 mg/dL Total Calcium 8.5 8.5-10.1 mg/dL DIAGNOSTICS / RADIOLOGY: [ ] PROBLEM LIST : Medical Problems: Perirectal abscess Deep disruption of surgical wound Unspecified open wound to perineal PLAN: Wound care to perineal wound- Cleanse wound with normal saline, pack with 1/4 inch iodoform packing, cover with 4x4 and secure with tape daily and prn Keep wounds clean and dry Offloading/reposition q 2 hours Continue IV antibiotics per ID Comorbidities per primary care team Further Management per hospital course. Thank You for the consult and allowing us to participate in the care of this patient. Patient has been approved to [facility] for wound care and being discharged today. Prescription was written for Augmentin p.o. b.i.d. for 7 days for when ready to discharge by ID team. Patient has follow up appointment at [facility] wound care center on 05/12/25 ATTESTATION BY PHYSICIAN I have seen and examined the patient. I reviewed the documentation, medical decision making, and treatment plan as noted by the mid-level provider above. I agree with the findings and plan of care. SILVA EASTON MD, MICHELLE A FNP Jun 07, 2025 15:56
--- NOTE | 2025-06-07 16:15 | NUR ---
Pt. given discharge instructions and verbalized understanding. All questions answered. Report called to SHYAM Wall at [facility]. 20g Left AC peripheral IV removed, manual pressure applied until hemostasis achieved--no oozing bruising or hematoma noted. Wound care and photography performed by wound care team prior to pt's discharge. Pt. discharged via w/c to private vehicle--no acute distress noted.
--- NOTE | 2025-06-07 16:41 | DS ---
Discharge Summary Hospital Course Summary: HOSPITAL COURSE: Beto Benoit is a 30-year-old female with a history of diabetes who presented with a 10-day history of worsening right perineal pain and swelling. She was initially managed as an outpatient with oral antibiotics (Ciprodex, then doxycycline) and two Rocephin injections, but symptoms progressed with increasing pain, swelling, and minimal drainage. Laboratory evaluation revealed significant leukocytosis (WBC 25.9), and her PCP advised ER evaluation. On admission, she was afebrile but had persistent perineal pain and swelling. Imaging (CT abdomen/pelvis and pelvic ultrasound) revealed a 4.4 x 3.0 x 4.0 cm left perineal abscess, likely perirectal in origin. There was also an incidental finding of a nabothian cyst in the cervix and a left lower lung pleural-based density (1.2 cm) on CT, with subsequent chest imaging suggestive of community- acquired pneumonia. General surgery was consulted, and the patient underwent incision and drainage (I&D) of the left perirectal abscess under general anesthesia on 06/02/2025. Intraoperative findings included copious purulent drainage; wound cultures were obtained, and the cavity was packed with iodoform gauze. Postoperatively, the patient was managed with IV vancomycin and piperacillin- tazobactam (Zosyn) per Infectious Disease recommendations. She remained afebrile and hemodynamically stable throughout her stay. Her leukocytosis resolved (WBC normalized to 8.4 by 06/04/2025), and her pain improved significantly. Wound care was provided daily, with plans for continued packing and dressing changes. Wound cultures grew Bacteroides fragilis. The patient was transitioned to oral Augmentin (amoxicillin-clavulanate) 875/125 mg BID for 7 days at discharge. She was approved for [facility] for ongoing wound care and scheduled for outpatient follow-up at [facility]. Her hospital course was also notable for mild anemia (Hgb solomon 9.9), which remained stable, and hypoalbuminemia (albumin 2.4). She did not require transfusion. Her diabetes was managed with sliding scale insulin, and glycemic control was stable (HbA1c 5.6%). Purchasing Buyer(s): Consultants: Dr. Fili Newby (Hospitalist), Dr. Shorty Gaston (Surgery), Dr. Matthew Askew (Infectious Disease), Wound Care Team Procedure(s): OPERATIVE REPORT Name: BETO BENOIT Acct: [id number] MR: [id number] : 1995 Admit Date: 06/02/25 SHORTY GASTON DO [facility] [address] [place] [address] Operative Note: DATE OF PROCEDURE: 06/02/25 SURGEON: SHORTY GASTON DO TROUBLE LINEMAN: None ANESTHESIA: General ANESTHESIOLOGIST/REGISTERED NURSE SUPERVISOR: RENNY Mcguire PREOPERATIVE DIAGNOSIS: Left perianal abscess POSTOPERATIVE DIAGNOSIS: Left perianal abscess SYNOPSIS: None PROCEDURE: Incision and drainage of left perianal abscess ESTIMATED BLOOD LOSS: 30 cc INDICATIONS: This is a 30-year-old female with perineal pain. She has a leukocytosis. CT scan and ultrasound showed a large fluid collection called to be nabothian cyst or Bartholin gland cyst. On physical exam the patient has erythema induration and fluctuance in the perineum consistent with perianal abscess. I recommended incision and drainage. I discussed the procedure in detail with the patient and her mother is at bedside. All questions were answered. Both expressed understanding and agreement with plan. DESCRIPTION OF PROCEDURE: The patient was placed on the operating table in the supine position. After adequate sedation the patient was intubated by anesthesia. Perioperative antibiotics were given. The patient was then placed in lithotomy position and the perineum was prepped and draped in the usual sterile fashion. A time-out was performed. A skin incision was made over the area of greatest fluctuance. Copious amounts of purulent drainage were appreciated immediately. Cultures were obtained. The incision was extended as after bluntly exploring the abscess cavity. The wound was copiously irrigated with sterile saline. The wound was packed with 1 in iodoform gauze and dressed with gauze and mesh undergarment. The patient tolerated the procedure well. All instrument, needle, and sponge counts were correct at the end of the procedure. The patient was aroused from sedation, extubated, and transferred to the postanesthesia care unit in good condition. SHORTY GASTON DO Jun 02, 2025 15:08 Electronically Signed by: SHORTY GASTON DO06/02/25 1508 Electronically Co-Signed by: Assessment/Plan: Primary Diagnosis: Left perirectal abscess, status post incision and drainage Secondary Diagnoses: Sepsis (present on admission), leukocytosis, multifactorial anemia, nabothian cyst (incidental), community-acquired pneumonia (radiograp hic), obesity ASSESSMENT: [ sepsis POA Rectal abscess POA s/p I and D with dr Gaston 06/03/25 nabothian cyst in cervix per CT abdomen/pelvis POA Community-acquired PNA per cxray Leukocytosis POA Multifactorial anemia POA] PLAN: [Per Infectious Disease recommendations, continue Zosyn and vancomycin. Awaiting final wound culture results. Postop day 4, continue to follow general surgeon recommendation Continue daily wound packing. Case management consult placed for home health services to assist with daily packing changes. Patient is cleared for discharge once home health arrangements are finalized. Anticipate discharge once home health/wound care is secured, Anticipate antibiotics continuation though Antibiotic regimen (IV vs. PO) to be determined per Infectious Disease recommendations. Continue to monitor patient in the interim. Obtain morning labs. Case was seen and evaluated with Dr. Resendiz, above plan was formulated Discharge Instructions: DISCHARGE CONDITION:Awake, alert, and oriented x3 Afebrile, hemodynamically stable Pain well controlled Wound with healthy granulation tissue, minimal serous drainage, no periwound erythema Ambulating independently DISCHARGE MEDICATIONS: Augmentin (amoxicillin-clavulanate) 875/125 mg PO BID x 7 days Continue home medications as previously prescribed Pain management: acetaminophen with codeine Continue wound care as instructed DISCHARGE INSTRUCTIONS: Wound care: Cleanse wound with normal saline, pack with 1/4 inch iodoform gauze, cover with 4x4 and secure with tape daily and as needed. Keep wound clean and dry. Offload/reposition every 2 hours. Monitor for signs of infection: increased redness, swelling, drainage, fever, or worsening pain. Follow up with [facility] for daily wound care. Outpatient follow-up at [facility] on 06/11/2025. Follow up with primary care provider as scheduled. Return to the emergency department for fever, chills, worsening pain, or any new concerning symptoms. FOLLOW-UP APPOINTMENTS: [facility]: Daily wound care [facility]: 06/11/2025 Primary Care Provider: As scheduled Home Medications: No Active Prescriptions or Reported Meds Time spent arranging discharge: 31-60 minutes ATTESTATION BY PHYSICIAN I have seen and examined the patient. I reviewed the documentation, medical decision making, and treatment plan as noted by the mid-level provider above. I agree with the findings and plan of care. Caridad Waller MD, JANICE B [facility] Jun 07, 2025 16:41
== END 2025-06-07 16:00 | disposition home health service (06) | DRG 853 ==
LOC: EDH 07:16 → EDHIP 11:34 → EDH 14:15 → 1MS 15:32
PROVIDERS: ADMIT Internal Medicine; ATTEND Internal Medicine
PROC: 0D9Q0ZZ Drainage of Anus, Open Approach (ICD-10-PCS; principal; 2025-06-02 13:15)
DX: A41.9 Sepsis, unspecified organism (principal); J18.9 Pneumonia, unspecified organism; K61.2 Anorectal abscess; N39.0 Urinary tract infection, site not specified; T81.31XA Disruption of external operation (surgical) wound, not elsewhere classified, initial encounter; L02.215 Cutaneous abscess of perineum; D63.8 Anemia in other chronic diseases classified elsewhere; N88.8 Other specified noninflammatory disorders of cervix uteri; D72.829 Elevated white blood cell count, unspecified; D64.9 Anemia, unspecified; K62.89 Other specified diseases of anus and rectum; E66.9 Obesity, unspecified; E11.9 Type 2 diabetes mellitus without complications; B96.6 Bacteroides fragilis [B. fragilis] as the cause of diseases classified elsewhere; N75.0 Cyst of Bartholin's gland; Z68.21 Body mass index [BMI] 21.0-21.9, adult
CPT/HCPCS: 36415; 71250; 74177; 76830; 76856; 80048; 80053; 80076; 80202; 80305; 81001; 82550; 82948; 83036; 83605; 83735; 84145; 84439; 84443; 84481; 84703; 85025; 85027; 87070; 87076; 87086; 87205; 99285; J1171; J1885; J2003; J2250; J2543; J2704; J3010; J3373; J3490; J7120; Q9967; A4216; A4222; A4223; J0690; J1308; J3375